=== PATIENT | male | born 1950 | race Caucasian/White ===

== ENCOUNTER 2022-10-23 12:09 | Day surgery (SDC) | payer MEDICARE, SELFPAY ==
[2022-10-23] MEDS: TETRACAINE 0.5% OPHTH 1 DROP EYE-LEFT (12:27)
[2022-10-23] MEDS: KETOROLAC OPHTH 0.5% 1 DROP EYE-LEFT ×3 (12:33→12:51)
[2022-10-23 12:38] VITALS: BP 121/76; PULSE 62; RESP 20; TEMP 36.4; O2SAT 100
[2022-10-23 12:40] VITALS: BMI 30.3
[2022-10-23] MEDS: HYALURONIDASE,OVINE 200 UNIT/ML VIAL 120 UNIT INJECTION (13:58)
[2022-10-23] MEDS: lidocaine HCL 2 % MULTIDOSE 20 ML VIAL 5 ML INJECTION (13:58)
[2022-10-23] MEDS: TETRACAINE 0.5% OPHTH 2 DROP EYE-LEFT (14:00)
--- NOTE | 2022-10-23 14:01 | W.ANESCHARGE ---
Anesthesia Charges Start Date/Time Anesthesia Start Date: 10/23/22 Anesthesia Start Time: 13:52 Stop Date/Time Anesthesia Stop Date: 10/23/22 Anesthesia Stop Time: 14:36 Summary Emergency: No Extremes of Age: Over 70-CPT 94063
[2022-10-23] MEDS: BALANCED SALT IRRIG SOLN 15 ML EYE-LEFT (14:04)
--- NOTE | 2022-10-23 14:08 | SUR.OPER ---
HEALON 5 PRO ADMINISTERED INTRAOP INTO OPSITE
--- NOTE | 2022-10-23 14:18 | W.ANESCHARGE ---
Anesthesia Charges Start Date/Time Anesthesia Start Date: 10/23/22 Anesthesia Start Time: 13:52 Stop Date/Time Anesthesia Stop Date: 10/23/22 Anesthesia Stop Time: 14:36 Summary Emergency: No Extremes of Age: Over 70-CPT 10885
[2022-10-23] MEDS: BRIMONIDINE TARTRATE 0.2% OPHTH 1 DROP EYE-LEFT (14:28)
[2022-10-23 14:36] VITALS: BP 133/79; PULSE 62; RESP 16; TEMP 36.7; O2SAT 95
--- NOTE | 2022-10-23 14:47 | PM.PROC ---
Procedure Note Date Seen: 10/23/22 Will [facility] bill your pro fee for this procedure?: No Procedure Description: Left eye dilated 1 sterile prep and drape % Mydriacyl 2.5% phenylephrine Ocufen Vigamox to OR time out identified patient procedure I OL powerl IV sedation retrobulbar and nadbath block paracentesis 6:00 a.m. viscoelastic entered keratome temporal capsulotomy hydrodissection phaco chop cortex removed capsule impanded IOL 21.0 viscoelastic removed miochol instilled viscoelastic instilled gonionprism applied head turn to right microscope adjusted trabecular meshwork identified eye stent inserted head repositioned microscope repositioned viscoelastic removed incision hydrated incision leak free Vigamox on shield applied I patched and shielded discharged Surgeon: Ramana Ramos MD
== END 2022-10-23 15:15 | disposition home or self-care (01) ==
PROVIDERS: PCP Family Medicine; Visit Provider Ophthalmology
PROC: (CPT 66984; principal; 2022-10-23 13:00)
DX: H25.812 Combined forms of age-related cataract, left eye (principal); H40.1124 Primary open-angle glaucoma, left eye, indeterminate stage
CPT/HCPCS: 66984; 00142; 82962; 99100; A9270; J2250; J2704; J3010; J3471; S0020; V2632

== ENCOUNTER 2024-06-30 15:46 | Outpatient (CLI) | payer MEDICARE, SELFPAY | END 2024-06-30 15:47 | disposition home or self-care (01) | LOC: AMB 07-03 09:50 | PROVIDERS: PCP Family Medicine; Visit Provider Family Medicine | DX: R51.9 Headache, unspecified (principal); R53.1 Weakness | CPT/HCPCS: A0425; A0427 ==

== ENCOUNTER 2024-06-30 16:30 | Inpatient (IN) | payer MEDICARE, SELFPAY ==
[2024-06-30] VITALS (23 sets, daily range): BP systolic 123–169; BP diastolic 62–94; PULSE 94–101; RESP 18–22; TEMP 36.7–38.4; O2SAT 93–99; BMI 26.6; BMI 26.4
--- NOTE | 2024-06-30 16:52 | ED_ITS ---
HPI - General Adult General Time Seen by Provider: 16:52 Date Seen: 06/30/24 Chief complaint: Weakness Stated complaint: Falls Time Seen by Provider: 06/30/24 16:35 Source: patient, EMS and RN notes reviewed Mode of arrival: EMS Limitations: no limitations History of Present Illness HPI narrative: This 74-year-old male is brought in by ambulance from home after he fell and was unable to get up. He told staff that he has been ?stumbling around all day today. He has reportedly maybe had multiple falls and then just could not get up on this last fall. He is noted to have progressive weakness. He denies hitting his head, has no headache or head pain. He does complain of some general neck pain and pain going into the top of both of his shoulders. Denies any new numbness tingling anywhere. Is able to move his arms and legs. His son is present, states he saw him on Friday and he seemed a bit agitated, not himself that day. They were not aware that he had a fever until arrival here, temperature is 100.5? F. He does have a history of urinary infections, had bladder cancer in a total cystectomy with creation of neobladder. He denies any coughing or respiratory symptoms. No abdominal pain, no nausea vomiting or diarrhea. He has no pain in his extremities. Denies any trauma from the fall. He is noted to have Parkinson's history of depression, chronic kidney disease stage 3, history of colon polyps, periodic limb movement disorder, GERD, type 2 diabetes. He is also had a rotator cuff surgery and history of an appendectomy. Patient is known to have of stricture, does do self catheterization in feels the need to urinate now, states he will need to catheterize. Related Data Home Medications ?Medication ?Instructions ?Recorded ?Confirmed Lactobacillus acidophilus 10 10 mg PO DAILY 10/22/22 10/23/22 billion cell capsule (Probiotic) atorvastatin 20 mg tablet (Lipitor) 20 mg PO DAILY 10/22/22 10/23/22 carbidopa 25 mg-levodopa 100 mg 1 tab PO TID 10/22/22 10/23/22 tablet (Sinemet) clopidogrel 75 mg tablet (Plavix) 75 mg PO DAILY 10/22/22 10/23/22 duloxetine 60 mg capsule,delayed 120 mg PO DAILY 10/22/22 10/23/22 release (Cymbalta) glipizide 10 mg tablet 10 mg PO BID 10/22/22 10/23/22 loratadine 10 mg tablet (Claritin) 10 mg PO DAILY 10/22/22 10/23/22 melatonin 3 mg capsule 9 mg PO QHS 10/22/22 10/23/22 metformin 500 mg tablet 1,000 mg PO BID 10/22/22 10/23/22 pantoprazole 20 mg tablet,delayed 20 mg PO DAILY 10/22/22 10/23/22 release pregabalin 200 mg capsule (Lyrica) 200 mg PO BID 10/22/22 10/23/22 sitagliptin phosphate 100 mg 100 mg PO DAILY 10/22/22 10/23/22 tablet (Januvia) tadalafil 20 mg tablet (Cialis) 20 mg PO DAILY PRN 10/22/22 10/22/22 trazodone 100 mg tablet 200 mg PO HS 10/22/22 10/23/22 Allergies Allergy/AdvReac Type Severity Reaction Status Date / Time Seasonal allergies Allergy Unknown Uncoded 06/30/24 20:51 Review of Systems Status of ROS: Reports: 6 or more systems reviewed and unremarkable except as noted in History and below Narrative: Question total reliability of patient's current history given he does seem to have some current confusion. [facility] Medical History (Updated 06/30/24 @ 21:22 by Lukasz Chaves MD) Prostate cancer ?C61 - Malignant neoplasm of prostate (ICD-10) Vertebral basilar insufficiency ?G45.0 - Vertebro-basilar artery syndrome (ICD-10) Neurogenic bladder ?N31.9 - Neuromuscular dysfunction of bladder, unspecified (ICD-10) Chronic constipation ?K59.09 - Other constipation (ICD-10) Malignant neoplasm of urinary bladder ?C67.9 - Malignant neoplasm of bladder, unspecified (ICD-10) Severe episode of recurrent major depressive disorder, without psychotic features ?F33.2 - Major depressive disorder, recurrent severe without psychotic features (ICD-10) Stage 3 chronic kidney disease ?N18.30 - Chronic kidney disease, stage 3 unspecified (ICD-10) Subungual hematoma of great toe of left foot ?S90.212A - Contusion of left great toe with damage to nail, initial encounter (ICD-10) Parkinson disease ?G20 - Parkinson's disease (ICD-10) Adenomatous colon polyp ?D12.6 - Benign neoplasm of colon, unspecified (ICD-10) Moderate episode of recurrent major depressive disorder ?F33.1 - Major depressive disorder, recurrent, moderate (ICD-10) Periodic limb movement disorder ?G47.61 - Periodic limb movement disorder (ICD-10) GERD without esophagitis ?K21.9 - Gastro-esophageal reflux disease without esophagitis (ICD-10) Type II diabetes mellitus ?E11.9 - Type 2 diabetes mellitus without complications (ICD-10) Surgical History (Updated 06/30/24 @ 21:22 by Lukasz Chaves MD) Hx of rotator cuff surgery ?Z98.890 - Other specified postprocedural states (ICD-10) Hx of total cystectomy ?Z90.6 - Acquired absence of other parts of urinary tract (ICD-10) Hx of appendectomy ?Z90.49 - Acquired absence of other specified parts of digestive tract (ICD- 10) Family History (Updated 06/30/24 @ 21:25 by Lukasz Chaves MD) Father Heart disease Daughter Breast cancer Social History Narrative: He lives with his . 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 Code status is full. He does not smoke. He rarely drinks alcohol. What is your current living situation?: I presently have a place to live Problems where you live: no known problems Problems where you live details: N/A In the past 12 months, utilities in danger of being shut off: no In past 12 months, lack of transportation kept you from medical appts, meetings, work, or getting things needed for daily living: no In the past 12 mos, have been you worried that your food would run out before you had money to buy more?: never true In the past 12 mos, the food you bought just didn't last and you didn't have money to buy more?: never true Highest level of school completed/degree received: Bachelor's degree Smoking Status: Never smoker Second hand tobacco smoke exposure: No How often do you have a drink containing alcohol: never How often do you have six or more drinks on one occasion: Never AUDIT-C Alcohol total score: 0 Non-prescribed substance use: denies use Caffeine: Yes (1 coffee daily) How often does anyone, including family, friends and others, physically hurt you : never How often does anyone, including family, friends and others, insult or talk down to you: never How often does anyone, including family, friends and others, threaten you with harm: never How often does anyone, including family, friends and others, scream or curse at you: never service: Yes Exam Const: Vital Signs, click to edit/add: Vital Signs - 24 hr 06/30/24 16:38 06/30/24 16:42 06/30/24 16:44 Temperature 100.5 F H Pulse Rate 94 Pulse Rate [Right Pulse Oximeter] 99 Respiratory Rate 20 Blood Pressure Blood Pressure [Le ft Upper Arm] 152/74 H Pulse Oximetry 96 94 Oxygen Delivery Me thod Room Air 06/30/24 16:45 06/30/24 17:00 06/30/24 17:15 Temperature Pulse Rate 99 98 97 Pulse Rate [Right Pulse Oximeter] Respiratory Rate Blood Pressure 133/74 Blood Pressure [Le ft Upper Arm] Pulse Oximetry 94 95 95 Oxygen Delivery Me thod 06/30/24 17:18 06/30/24 17:32 06/30/24 17:33 Temperature Pulse Rate 96 96 Pulse Rate [Right Pulse Oximeter] Respiratory Rate Blood Pressure 145/75 H Blood Pressure [Le ft Upper Arm] Pulse Oximetry [address]od 06/30/24 17:43 06/30/24 17:57 06/30/24 18:00 Temperature Pulse Rate 101 H 101 H Pulse Rate [Right Pulse Oximeter] Respiratory Rate Blood Pressure Blood Pressure [Le ft Upper Arm] Pulse Oximetry 99 93 96 Oxygen Delivery Me thod 06/30/24 18:01 06/30/24 18:02 06/30/24 18:03 Temperature 99.1 F 99.0 F Pulse Rate 101 H Pulse Rate [Right Pulse Oximeter] 98 Respiratory Rate 22 18 Blood Pressure 169/94 H Blood Pressure [Le ft Upper Arm] 169/94 H Pulse Oximetry 97 [facility] 06/30/24 18:15 06/30/24 18:32 06/30/24 19:00 Temperature 101.2 F H Pulse Rate 98 Pulse Rate [Right Pulse Oximeter] Respiratory Rate Blood Pressure 168/78 H Blood Pressure [Le ft Upper Arm] Pulse Oximetry 98 Oxygen Delivery Me thod 06/30/24 19:02 06/30/24 20:02 Temperature Pulse Rate Pulse Rate [Right Pulse Oximeter] Respiratory Rate Blood Pressure 153/69 H 123/62 Blood Pressure [Le ft Upper Arm] Pulse Oximetry Oxygen Delivery Me thod This 74-year-old male is alert and interactive, hard of hearing. He is disheveled. Face appears atraumatic. Pupils are equal round reactive, sclera clear, conjugate gaze, symmetrical facial function. Able speak in complete sentences. Lips are normal but tongue is very dry, oral mucosa is dry. EMS currently has 500 mL normal saline running. Neck is supple, no midline tenderness, no adenopathy, no paraspinous tenderness, no masses. He complains of no pain on range of motion. No midline tenderness over his spine. Lungs are clear, good air entry, no wheezing or crackles. CV regular rate and rhythm, no murmur, normal S1-S2, S3-S4. No pain over clavicles or shoulders, he is witnessed moving both arms, can move them above his head. Abdomen is soft, nontender, nondistended, no organomegaly, no rebound or guarding. He has no lower extremity edema, extremities are without any noted focal tenderness or definite areas of trauma. Documenting provider has reviewed patient's vital signs: yes Course Course ED Course: This patient obviously has a fever, primary concern would be urinary source for infection. Will get triple viral swab, full panel of labs as well as a portable chest x-ray. Given his falls and is complaining neck pain, do feel that we need to do head CT and noncontrast cervical spine imaging with CT. Need to rule out any occult traumatic injury. He certainly by history has some encephalopathy or mild delirium possibly. Will continue to monitor. Will look at lactate and procalcitonin and follow him clinically. There is significant severe shortage of our blood culture products with no definite plan for remedy of this. Thus, need to follow conservation protocol. Reevaluation(s) Time of Reevaluation #1: 19:05 Reevaluation #1: Have ordered chest abdomen pelvis CT to further define potential etiology of infection. Patient's temperatures up to 101.2? F, he recently got Tylenol in but is not likely effective yet. Urinalysis is not certainly definitive for infection. White blood count is mildly elevated. Chest x-ray is without any definite pneumonia. Procalcitonin is just minimally elevated at 0.9. C reactive protein is high at 21.5. Triple viral swab is negative. Will cover with IV Zosyn in the interim. Consultations Consultation #1: Have spoken with the hospitalist Dr. Chaves. Reviewed that we are awaiting radiology read of his chest abdomen and pelvis to see if we can identify a source. Otherwise, it very well may be urinary. We are waiting urine culture as well which obviously will take 48 hours. He has received is IV Zosyn. I will update them that the hospitalist has accepted. Time: 19:52 Vital Signs Vital signs: Initial Vital Signs Pulse Rate 99 06/30/24 16:38 Pulse Rhythm Regular 06/30/24 16:38 Pulse Strength 3+ Normal 06/30/24 16:38 Respiratory Rate 20 06/30/24 16:38 Blood Pressure 152/74 H 06/30/24 16:38 Blood Pressure Mean 100 06/30/24 16:38 Blood Pressure Position Semi-Fowlers 06/30/24 16:38 Pulse Oximetry 96 06/30/24 16:38 Oxygen Delivery Method Room Air 06/30/24 16:38 Vital Signs Pulse Rate 99 06/30/24 16:38 Respiratory Rate 20 06/30/24 16:38 Blood Pressure 152/74 H 06/30/24 16:38 Pulse Oximetry 96 06/30/24 16:38 Oxygen Delivery Method Room Air 06/30/24 16:38 Temperature 98.1 F 06/30/24 20:36 Pulse Rate 96 06/30/24 20:36 Respiratory Rate 18 06/30/24 20:36 Blood Pressure 129/76 06/30/24 20:36 Pulse Oximetry 93 06/30/24 20:36 Oxygen Delivery Method Room Air 06/30/24 20:36 Medications Administered Medications: Discontinued Medications Generic Name Dose Route Start Last Admin Trade Name Freq PRN Reason Stop Dose Admin Acetaminophen 1,000 mg 06/30/24 17:54 06/30/24 18:03 Acetaminophen 500 Mg Tablet PO 06/30/24 17:55 1,000 mg ONCE ONE Administration Piperacillin Sod/Tazobactam 100 mls @ 200 mls/hr 06/30/24 19:04 06/30/24 20:28 Sod 3.375 gm/ Sodium Chloride IVPB 06/30/24 19:05 Infused ONCE ONE Infusion Medical Decision Making Lab Data Lab results reviewed: Yes I reviewed the patient's lab results Labs: Lab Results 06/30/24 06/30/24 Range/Units 17:25 17:30 WBC 11.12 H (4.50-11.00) K/uL RBC 4.18 L (4.30-5.90) m/uL Hgb 12.3 L (13.5-17.5) gm/dL Hct 38.1 (37.0-53.0) % MCV 91 (80-100) fL MCH 29 (26-34) pg MCHC 32 (32-36) gm/dL RDW Coeff of Miriam 13.9 (11.5-15.5) % Plt Count 83 L (140-440) K/uL Neut % (Auto) 84.6 H (42.0-72.0) % Lymph % (Auto) 4.6 L (20-44) % [place] % (Auto) 10.3 (0.0-11.0) % Eos % (Auto) 0.0 (0.0-7.0) % Baso % (Auto) 0.1 (0.0-3.0) % Neut # (Auto) 9.40 H (1.7-7.0) K/uL Lymph # (Auto) 0.50 L (0.90-2.90) K/uL [place] # (Auto) 1.10 H (0.00-0.90) K/UL Eos # (Auto) 0.00 (0.00-0.50) K/uL Baso # (Auto) 0.00 (0.00-0.30) K/uL Abs Immat Gran (auto) 0.00 (0.00-0.30) K/uL Imm/Tot Granulo (auto) 0.4 % VBG pH 7.416 (7.32-7.43) VBG pCO2 35 L (40-50) mmHG VBG pO2 < 30.1 (25-47) mmHG VBG HCO3 23 (21-28) mmol/L Sodium 133 L (135-149) mmol/L Potassium 4.2 (3.6-5.1) mmol/L Chloride 104 (96-114) mmol/L Carbon Dioxide 21 (20-32) mmol/L Anion Gap 8 (7-15) mEq/L BUN 31 H (7-30) mg/dL Creatinine 1.5 (0.5-1.5) mg/dL Estimated Creat Clear 55.86 Estimated GFR 49 ml/min Glucose 317 H (60-115) mg/dL Lactate 1.3 (0.5-1.9) mmol/L Calcium 8.3 L (8.4-10.6) mg/dL Total Bilirubin 1.3 (0.1-1.5) mg/dL AST 28 (12-35) U/L ALT 23 (4-50) U/L Alkaline Phosphatase 92 (40-150) U/L C-Reactive Protein 21.5 H (0.5-1.0) mg/dL Total Protein 7.1 (6.0-8.3) g/dL Albumin 4.3 (3.3-5.0) g/dL Procalcitonin 0.90 H (<0.50) ng/mL Urine Color Yellow (Yellow) Urine Appearance Clear (Clear) Urine pH 5.5 (5.0-8.5) Ur Specific [place] 1.015 (1.000-1.030) Urine Protein 1+ A (Negative) Urine Glucose (UA) 2+ A (Negative) Urine Ketones Negative (Negative) Urine Blood 2+ A (Negative) Urine Nitrite Negative (Negative) Urine Bilirubin Negative (Negative) Urine Urobilinogen 0.2 (0.2-1.0) Ur Leukocyte Esterase Trace A (Negative) Urine RBC 2-5 A (0-2) Urine WBC 2-5 (0-5) Ur Squamous Epith Cells None (None-Few) Urine Bacteria Many A (None) SARS-CoV-2 (PCR) Negative SARS-CoV-2 (Negative) Influenza Type A (PCR) Negative PCR FLU A (Negative) Influenza Type B (PCR) Negative PCR FLU B (Negative) RSV (PCR) Negative PCR RSV (Negative) Imaging Data CT scan - head: Attestation: I have reviewed the pertinent imaging results. Radiologist's impression: Patient: ALPHONSE MCLAUGHLIN Facility:?[facility] Patient ID:?[id number] Site Patient ID:?[id number]. Site :?[id number] Study:?CT-Head WITHOUT-06/30/2024 5:59:05 PM Ordering Physician:?Sanjay Small Final Report: INDICATION: Altered mental status, fall TECHNIQUE: Noncontrast axial CT of the head. Coronal and sagittal reformats. Bone and soft tissue algorithms. COMPARISON: MRI brain 01/26/2019 FINDINGS: The calvarium is grossly intact. No acute intracranial hemorrhage or abnormal extra-axial fluid collection identified. No midline shift, mass effect, hydrocephalus or herniation. Preserved velázquez-white matter differentiation. Unremarkable white matter attenuation. Calcific intracranial atherosclerotic plaquing. Clear paranasal sinuses and mastoid air cells. Bilateral lens implants. IMPRESSION: 1. No skull fracture or acute intracranial hemorrhage identified. Please note that all CT scans at this facility use dose modulation, iterative reconstruction, and/or weight-based dosing when appropriate to reduce radiation dose to as low as reasonably achievable. Dictated by Nicolasa Garcia MD @ 06/30/2024 6:29:07 PM (Electronic Signature) CT cervical spine: Attestation: I have reviewed the pertinent imaging results. Radiologist's impression: Patient: ALPHONSE MCLAUGHLIN Facility:?[facility] Patient ID:?[id number] Site Patient ID:?[id number]. Site :?[id number] Study:?CT-Spine Cervical WITHOUT-06/30/2024 5:58:22 PM Ordering Physician:?Sanjay Small Final Report: Indication: Fall, neck pain Technique: Noncontrast axial CT of the cervical spine with coronal and sagittal reformats. Comparison: None Findings: Nonspecific straightening of the normal cervical lordosis. Grade 1 degenerative anterolisthesis at C4-5. Craniocervical junction appears within normal limits. No acute fracture identified. Degenerative Schmorl`s nodes at the C6 and C7 superior endplates. Incidental ossification of the ligamentum nuchae. Scattered degenerative changes, contributing to multilevel neural foraminal narrowing, but no significant spinal canal stenosis. Impression: 1. No evidence of acute fracture or traumatic malalignment in the cervical spine. 2. Scattered spondylosis as detailed. No high-grade spinal canal stenosis. Please note that all CT scans at this facility use dose modulation, iterative reconstruction, and/or weight-based dosing when appropriate to reduce radiation dose to as low as reasonably achievable. Dictated by Nicolasa Garcia MD @ 06/30/2024 6:32:39 PM (Electronic Signature) Chest x-ray: Attestation: I have reviewed the pertinent imaging results. Radiologist's impression: Patient: ALPHONSE MCLAUGHLIN Facility:?[facility] Patient ID:?[id number] Site Patient ID:?[id number]. Site :?1950 Study:?XRay-Chest PORTABLE-06/30/2024 5:49:23 PM Ordering Physician:?Sanjay Small Final Report: Indication: Fever, weakness Technique: AP view of the chest. Comparison: 07/03/2015 Findings: Low lung volumes. Normal cardiomediastinal silhouette. No focal consolidation, pleural effusions, or visualized pneumothorax. Impression: No acute cardiopulmonary disease. Dictated by Landen Burns MD @ 06/30/2024 6:59:59 PM (Electronic Signature) CT Chest/Ab/Pelvis: Radiologist's impression: Pending at time of admission. ECG Data Attestation: I personally reviewed and interpreted this ECG as follows: (Normal sinus rhythm, 100 beats per minute, left anterior fascicular block.) Prior ECG tracings: not available for review Discharge Plan Discharge Clinical Impression: Weakness, Falls Fever Qualifiers: Fever type: unspecified Qualified Code(s): R50.9 - Fever, unspecified Patient Disposition: Admitted As Observation
--- NOTE | 2024-06-30 17:00 | CRLHL7_ITS ---
For Patients: As a result of the Century Cures Act, medical imaging exams and procedure reports are released immediately into your electronic medical record. You may view this report before your referring provider. If you have questions, please contact your health care provider. Indication: Fever, weakness Technique: AP view of the chest. Comparison: 07/03/2015 Findings: Low lung volumes. Normal cardiomediastinal silhouette. No focal consolidation, pleural effusions, or visualized pneumothorax. Impression: No acute cardiopulmonary disease. Dictated by Landen Burns MD @ 06/30/2024 6:59:59 PM (Electronically Signed)
--- NOTE | 2024-06-30 17:20 | CRLHL7_ITS ---
For Patients: As a result of the Century Cures Act, medical imaging exams and procedure reports are released immediately into your electronic medical record. You may view this report before your referring provider. If you have questions, please contact your health care provider. INDICATION: Altered mental status, fall TECHNIQUE: Noncontrast axial CT of the head. Coronal and sagittal reformats. Bone and soft tissue algorithms. COMPARISON: MRI brain 01/26/2019 FINDINGS: The calvarium is grossly intact. No acute intracranial hemorrhage or abnormal extra-axial fluid collection identified. No midline shift, mass effect, hydrocephalus or herniation. Preserved velázquez-white matter differentiation. Unremarkable white matter attenuation. Calcific intracranial atherosclerotic plaquing. Clear paranasal sinuses and mastoid air cells. Bilateral lens implants. IMPRESSION: 1. No skull fracture or acute intracranial hemorrhage identified. Please note that all CT scans at this facility use dose modulation, iterative reconstruction, and/or weight-based dosing when appropriate to reduce radiation dose to as low as reasonably achievable. Dictated by Nicolasa Garcia MD @ 06/30/2024 6:29:07 PM (Electronically Signed)
--- NOTE | 2024-06-30 17:20 | CRLHL7_ITS ---
For Patients: As a result of the Century Cures Act, medical imaging exams and procedure reports are released immediately into your electronic medical record. You may view this report before your referring provider. If you have questions, please contact your health care provider. Indication: Fall, neck pain Technique: Noncontrast axial CT of the cervical spine with coronal and sagittal reformats. Comparison: None Findings: Nonspecific straightening of the normal cervical lordosis. Grade 1 degenerative anterolisthesis at C4-5. Craniocervical junction appears within normal limits. No acute fracture identified. Degenerative Schmorl`s nodes at the C6 and C7 superior endplates. Incidental ossification of the ligamentum nuchae. Scattered degenerative changes, contributing to multilevel neural foraminal narrowing, but no significant spinal canal stenosis. Impression: 1. No evidence of acute fracture or traumatic malalignment in the cervical spine. 2. Scattered spondylosis as detailed. No high-grade spinal canal stenosis. Please note that all CT scans at this facility use dose modulation, iterative reconstruction, and/or weight-based dosing when appropriate to reduce radiation dose to as low as reasonably achievable. Dictated by Nicolasa Garcia MD @ 06/30/2024 6:32:39 PM (Electronically Signed)
[2024-06-30 17:37] LABS: HCO3 VBG 23 mmol/L (21-28); PCO2 VBG 35 mmHG (40-50); PO2 VBG < 30.1 mmHG (25-47); pH VBG 7.416 (7.32-7.43)
[2024-06-30 17:39] LABS: Basophils Percent Auto 0.1 % (0.0-3.0); Hematocrit 38.1 % (37.0-53.0); Hemoglobin* 12.3 gm/dL (13.5-17.5); Immature Granulocytes Pct Auto 0.4 %; Lymphocytes Percent Auto 4.6 % (20-44); Mean Corpuscular HGB Conc 32 gm/dL (32-36); Mean Corpuscular Hemoglobin 29 pg (26-34); Mean Corpuscular Volume 91 fL (80-100); Monocytes Percent Auto 10.3 % (0.0-11.0); Neutrophils Percent Auto 84.6 % (42.0-72.0); Platelet Count* 83 K/uL (140-440); RDW Coefficient of Variation % 13.9 % (11.5-15.5); Red Blood Count 4.18 m/uL (4.30-5.90); White Blood Count* 11.12 K/uL (4.50-11.00)
[2024-06-30 17:41] LABS: Appearance Urine Clear (Clear); Bilirubin Urine Negative (Negative); Blood Urine 2+ (Negative); Color Urine Yellow (Yellow); Glucose Urine 2+ (Negative); Ketones Urine Negative (Negative); Leukocyte Esterase Urine Trace (Negative); Nitrite Urine Negative (Negative); Protein Urine 1+ (Negative); Specific Gravity Urine 1.015 (1.000-1.030); Urobilinogen Urine 0.2 (0.2-1.0); pH Urine 5.5 (5.0-8.5)
[2024-06-30 17:42] LABS: Slide Review Reflex No
[2024-06-30 17:43] LABS: Lactate* 1.3 mmol/L (0.5-1.9)
[2024-06-30 17:51] LABS: Albumin* 4.3 g/dL (3.3-5.0); Chloride* 104 mmol/L (96-114); Sodium* 133 mmol/L (135-149)
[2024-06-30 17:52] LABS: Potassium* 4.2 mmol/L (3.6-5.1)
[2024-06-30 17:53] LABS: Creatinine* 1.5 mg/dL (0.5-1.5); Est. Creatinine Clearance* 55.86; Estimated Glomerular Filt Rate 49 ml/min
[2024-06-30 17:54] LABS: Alanine Aminotransferase* 23 U/L (4-50); Alkaline Phosphatase* 92 U/L (40-150); Anion Gap 8 mEq/L (7-15); Aspartate Amino Transferase* 28 U/L (12-35); Bilirubin Total* 1.3 mg/dL (0.1-1.5); Blood Urea Nitrogen* 31 mg/dL (7-30); Carbon Dioxide* 21 mmol/L (20-32); Glucose* 317 mg/dL (60-115); Total Protein* 7.1 g/dL (6.0-8.3)
[2024-06-30 17:55] LABS: Calcium* 8.3 mg/dL (8.4-10.6)
[2024-06-30] MEDS: ACETAMINOPHEN 500 MG TABLET 1000 MG PO (18:03)
[2024-06-30 18:06] LABS: Bacteria Urine Many
[2024-06-30 18:09] LABS: C Reactive Protein* 21.5 mg/dL (0.5-1.0)
[2024-06-30 18:17] LABS: PCR FLU A Negative PCR FLU A (Negative); PCR FLU B Negative PCR FLU B (Negative); PCR RSV Negative PCR RSV (Negative); SARS PCR* Negative SARS-CoV-2 (Negative)
--- NOTE | 2024-06-30 19:04 | CRLHL7_ITS ---
For Patients: As a result of the Century Cures Act, medical imaging exams and procedure reports are released immediately into your electronic medical record. You may view this report before your referring provider. If you have questions, please contact your health care provider. Indication: Fever Technique: Postcontrast CT of the chest, abdomen, and pelvis with multiplanar reformats following 112 mL Isovue 370 IV. Comparison: CT chest abdomen pelvis dated 07/04/2015 Findings: Chest: Lungs: No consolidation. Trace right effusion. No pneumothorax. Mediastinum: No acute abnormality appreciated. Calcified atherosclerosis of the coronary arteries. Lymph nodes: No gross lymphadenopathy. Soft tissues: No acute abnormality appreciated. Bones: Degenerative changes of the spine. Abdomen and Pelvis: Hepatobiliary: There is a 2.8 centimeter indeterminate density lesion in the right inferior medial liver. Cholelithiasis. Spleen: Unremarkable. Pancreas: No acute abnormality appreciated. Adrenal glands: No acute abnormality appreciated. Kidneys: Bilateral perinephric stranding and mild hydronephrosis appears unchanged compared to prior examinations. Bowel: Postoperative changes. Obstruction. No focal perienteric or pericolonic stranding is appreciated. The appendix is visualized and appears unremarkable. Vascular: Calcified atherosclerosis. Lymph nodes: Aortocaval node measures 11 millimeters, previously measuring 16 millimeters. Peritoneum: No free air. No free fluid. : Status post cystectomy with neobladder construction. Soft tissues: No acute abnormality appreciated. Bones: No acute fracture. No lytic or blastic lesion. Impression: 1. Indeterminate density lesion in the right liver measures 2.8 centimeters, did not appear to be present on 2015 examination. Etiology and significance uncertain, consider nonemergent outpatient liver protocol MRI or CT. 2. Additional chronic findings as above with no acute abnormality appreciated to account for patient`s reported symptoms. Please note that all CT scans at this facility use dose modulation, iterative reconstruction, and/or weight-based dosing when appropriate to reduce radiation dose to as low as reasonably achievable. Dictated by Paulino Villafana MD @ 06/30/2024 8:31:29 PM (Electronically Signed)
[2024-06-30] MEDS: PIPERACILLIN/TAZOBACTAM 3.375 GM in 0.9 % SODIUM CHLORIDE Mini-bag 100 ML IVPB (19:38)
--- NOTE | 2024-06-30 21:18 | P.IMHP_ITS ---
Hospitalist- H&P: HPI History of Present Illness Date Seen: 06/30/24 Chief complaint: Falls Narrative: Cory Vregara is a 74 year old male with prostate cancer, bladder cancer, Parkinson's and diabetes admitted through the emergency department with acute on chronic weakness and falls. Patient reports for the last couple days he has had recurrent falls. Today he was so weak that he was unable to stand. He normally walks without assistive device/walker/cane. Today he fell and could not get up. Not aware of being ill. On presentation the emergency room he was found to have a fever. Reports no other concerns. Specifically denies cough, sore throat, cold, shortness of breath, chest pain, abdominal pain, nausea vomiting or diarrhea. He has history of bladder cancer with a neobladder and has had recurrent urinary infections in the past. He self catheterizes. He has had no recent travel. He has not had any sick exposures. Review of Systems Narrative: Patient has had progressive weakness associated with Parkinson's but acutely worse in the last few days. Review of systems otherwise unremarkable. [facility] Medical History (Updated 06/30/24 @ 21:32 by Lukasz Chaves MD) Liver lesion ?K76.9 - Liver disease, unspecified (ICD-10) Prostate cancer ?C61 - Malignant neoplasm of prostate (ICD-10) Vertebral basilar insufficiency ?G45.0 - Vertebro-basilar artery syndrome (ICD-10) Neurogenic bladder ?N31.9 - Neuromuscular dysfunction of bladder, unspecified (ICD-10) Chronic constipation ?K59.09 - Other constipation (ICD-10) Malignant neoplasm of urinary bladder ?C67.9 - Malignant neoplasm of bladder, unspecified (ICD-10) Severe episode of recurrent major depressive disorder, without psychotic features ?F33.2 - Major depressive disorder, recurrent severe without psychotic features (ICD-10) Stage 3 chronic kidney disease ?N18.30 - Chronic kidney disease, stage 3 unspecified (ICD-10) Subungual hematoma of great toe of left foot ?S90.212A - Contusion of left great toe with damage to nail, initial encounter (ICD-10) Parkinson disease ?G20 - Parkinson's disease (ICD-10) Adenomatous colon polyp ?D12.6 - Benign neoplasm of colon, unspecified (ICD-10) Moderate episode of recurrent major depressive disorder ?F33.1 - Major depressive disorder, recurrent, moderate (ICD-10) Periodic limb movement disorder ?G47.61 - Periodic limb movement disorder (ICD-10) GERD without esophagitis ?K21.9 - Gastro-esophageal reflux disease without esophagitis (ICD-10) Type II diabetes mellitus ?E11.9 - Type 2 diabetes mellitus without complications (ICD-10) Surgical History (Updated 06/30/24 @ 21:22 by Lukasz Chaves MD) Hx of rotator cuff surgery ?Z98.890 - Other specified postprocedural states (ICD-10) Hx of total cystectomy ?Z90.6 - Acquired absence of other parts of urinary tract (ICD-10) Hx of appendectomy ?Z90.49 - Acquired absence of other specified parts of digestive tract (ICD- 10) Family History (Updated 06/30/24 @ 21:25 by Lukasz Chaves MD) Father Heart disease Daughter Breast cancer Social History (Updated 06/30/24 @ 21:25 by Lukasz Chaves MD) Narrative: He lives with his . 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 Code status is full. He does not smoke. He rarely drinks alcohol. What is your current living situation?: I presently have a place to live Problems where you live: no known problems Problems where you live details: N/A In the past 12 months, utilities in danger of being shut off: no In past 12 months, lack of transportation kept you from medical appts, meetings, work, or getting things needed for daily living: no In the past 12 mos, have been you worried that your food would run out before you had money to buy more?: never true In the past 12 mos, the food you bought just didn't last and you didn't have money to buy more?: never true Highest level of school completed/degree received: Bachelor's degree Smoking Status: Never smoker Second hand tobacco smoke exposure: No How often do you have a drink containing alcohol: never How often do you have six or more drinks on one occasion: Never AUDIT-C Alcohol total score: 0 Non-prescribed substance use: denies use Caffeine: Yes (1 coffee daily) How often does anyone, including family, friends and others, physically hurt you : never How often does anyone, including family, friends and others, insult or talk down to you: never How often does anyone, including family, friends and others, threaten you with harm: never How often does anyone, including family, friends and others, scream or curse at you: never service: Yes Meds Home Medications and Allergies Home Medications ?Medication ?Instructions ?Recorded ?Confirmed ?Type Lactobacillus acidophilus 10 10 mg PO DAILY 10/22/22 10/23/22 History billion cell capsule (Probiotic) atorvastatin 20 mg tablet (Lipitor) 20 mg PO DAILY 10/22/22 10/23/22 History carbidopa 25 mg-levodopa 100 mg 1 tab PO TID 10/22/22 10/23/22 History tablet (Sinemet) clopidogrel 75 mg tablet (Plavix) 75 mg PO DAILY 10/22/22 10/23/22 History duloxetine 60 mg capsule,delayed 120 mg PO DAILY 10/22/22 10/23/22 History release (Cymbalta) glipizide 10 mg tablet 10 mg PO BID 10/22/22 10/23/22 History loratadine 10 mg tablet (Claritin) 10 mg PO DAILY 10/22/22 10/23/22 History melatonin 3 mg capsule 9 mg PO QHS 10/22/22 10/23/22 History metformin 500 mg tablet 1,000 mg PO BID 10/22/22 10/23/22 History pantoprazole 20 mg tablet,delayed 20 mg PO DAILY 10/22/22 10/23/22 History release pregabalin 200 mg capsule (Lyrica) 200 mg PO BID 10/22/22 10/23/22 History sitagliptin phosphate 100 mg 100 mg PO DAILY 10/22/22 10/23/22 History tablet (Januvia) tadalafil 20 mg tablet (Cialis) 20 mg PO DAILY PRN 10/22/22 10/22/22 History trazodone 100 mg tablet 200 mg PO HS 10/22/22 10/23/22 History Allergies Allergy/AdvReac Type Severity Reaction Status Date / Time Seasonal allergies Allergy Unknown Uncoded 06/30/24 20:51 Exam Narrative: Exam Narrative: He is alert but tired appearing and appears in no distress. He gives his own history. Head is normal. No trauma. Eyes normal. Extraocular movements full. No facial asymmetry. Oropharynx with dry mucous membranes. Neck is supple without mass or adenopathy. Respirations are clear to auscultation. Cardiovascular: S1, S2, regular rate and rhythm. No murmur gallop or rub. Abdomen: Bowel sounds active. Abdomen is soft without tenderness or mass. External genitalia normal. Extremities normal. Intact pulses and sensation. No rash. Const: Vital Signs, click to edit/add: Vital Signs - 24 hr 06/30/24 16:38 06/30/24 16:42 06/30/24 16:44 Temperature 100.5 F H Pulse Rate 94 Pulse Rate [Left P ulse Oximeter] Pulse Rate [Right Pulse Oximeter] 99 Respiratory Rate 20 Blood Pressure Blood Pressure [Le ft Arm] Blood Pressure [Le ft Upper Arm] 152/74 H Pulse Oximetry 96 94 Oxygen Delivery Me od Room Air 06/30/24 16:45 06/30/24 17:00 06/30/24 17:15 Temperature Pulse Rate 99 98 97 Pulse Rate [Left P ulse Oximeter] Pulse Rate [Right Pulse Oximeter] Respiratory Rate Blood Pressure 133/74 Blood Pressure [Le ft Arm] Blood Pressure [Le ft Upper Arm] Pulse Oximetry 94 95 95 Oxygen Delivery Me thod 06/30/24 17:18 06/30/24 17:32 06/30/24 17:33 Temperature Pulse Rate 96 96 Pulse Rate [Left P ulse Oximeter] Pulse Rate [Right Pulse Oximeter] Respiratory Rate Blood Pressure 145/75 H Blood Pressure [Le ft Arm] Blood Pressure [Le ft Upper Arm] Pulse Oximetry 99 98 Oxygen Delivery Me thod 06/30/24 17:43 06/30/24 17:57 06/30/24 18:00 Temperature Pulse Rate 101 H 101 H Pulse Rate [Left P ulse Oximeter] Pulse Rate [Right Pulse Oximeter] Respiratory Rate Blood Pressure Blood Pressure [Le ft Arm] Blood Pressure [Le ft Upper Arm] Pulse Oximetry 99 93 96 Oxygen Delivery Me thod 06/30/24 18:01 06/30/24 18:02 06/30/24 18:03 Temperature 99.1 F 99.0 F Pulse Rate 101 H Pulse Rate [Left P ulse Oximeter] Pulse Rate [Right Pulse Oximeter] 98 Respiratory Rate 22 18 Blood Pressure 169/94 H Blood Pressure [Le ft Arm] Blood Pressure [Le ft Upper Arm] 169/94 H Pulse Oximetry 97 99 Oxygen Delivery Me thod Room Air 06/30/24 18:15 06/30/24 18:32 06/30/24 19:00 Temperature 101.2 F H Pulse Rate 98 Pulse Rate [Left P ulse Oximeter] Pulse Rate [Right Pulse Oximeter] Respiratory Rate Blood Pressure 168/78 H Blood Pressure [Le ft Arm] Blood Pressure [Le ft Upper Arm] Pulse Oximetry 98 Oxygen Delivery Me thod 06/30/24 19:02 06/30/24 20:02 06/30/24 20:36 Temperature 98.1 F Pulse Rate Pulse Rate [Left P ulse Oximeter] 96 Pulse Rate [Right Pulse Oximeter] Respiratory Rate 18 Blood Pressure 153/69 H 123/62 Blood Pressure [Le ft Arm] 129/76 Blood Pressure [Le ft Upper Arm] Pulse Oximetry 93 Oxygen Delivery Me thod Room Air Documenting provider has reviewed patient's vital signs: yes Hospitalist - H&P: Result Labs Labs: Short CBC 06/30/24 Range/Units 17:30 WBC 11.12 H (4.50-11.00) K/uL Hgb 12.3 L (13.5-17.5) gm/dL Hct 38.1 (37.0-53.0) % Plt Count 83 L (140-440) K/uL BMP 06/30/24 17:30 Sodium 133 L Potassium 4.2 Chloride 104 Carbon Dioxide 21 BUN 31 H Creatinine 1.5 Glucose 317 H Calcium 8.3 L Liver Function 06/30/24 Range/Units 17:30 Total Bilirubin 1.3 (0.1-1.5) mg/dL AST 28 (12-35) U/L ALT 23 (4-50) U/L Alkaline Phosphatase 92 (40-150) U/L Albumin 4.3 (3.3-5.0) g/dL Urine 06/30/24 Range/Units 17:25 Urine Color Yellow (Yellow) Urine Appearance Clear (Clear) Urine pH 5.5 (5.0-8.5) Ur Specific [place] 1.015 (1.000-1.030) Urine Protein 1+ A (Negative) Urine Glucose (UA) 2+ A (Negative) Imaging CT Chest/Ab/Pelvis: Radiologist's impression: Indication: Fever Technique: Postcontrast CT of the chest, abdomen, and pelvis with multiplanar reformats following 112 mL Isovue 370 IV. Comparison: CT chest abdomen pelvis dated 07/04/2015 Findings: Chest: Lungs: No consolidation. Trace right effusion. No pneumothorax. Mediastinum: No acute abnormality appreciated. Calcified atherosclerosis of the coronary arteries. Lymph nodes: No gross lymphadenopathy. Soft tissues: No acute abnormality appreciated. Bones: Degenerative changes of the spine. Abdomen and Pelvis: Hepatobiliary: There is a 2.8 centimeter indeterminate density lesion in the right inferior medial liver. Cholelithiasis. Spleen: Unremarkable. Pancreas: No acute abnormality appreciated. Adrenal glands: No acute abnormality appreciated. Kidneys: Bilateral perinephric stranding and mild hydronephrosis appears unchanged compared to prior examinations. Bowel: Postoperative changes. Obstruction. No focal perienteric or pericolonic stranding is appreciated. The appendix is visualized and appears unremarkable. Vascular: Calcified atherosclerosis. Lymph nodes: Aortocaval node measures 11 millimeters, previously measuring 16 millimeters. Peritoneum: No free air. No free fluid. : Status post cystectomy with neobladder construction. Soft tissues: No acute abnormality appreciated. Bones: No acute fracture. No lytic or blastic lesion. Impression: 1. Indeterminate density lesion in the right liver measures 2.8 centimeters, did not appear to be present on 2015 examination. Etiology and significance uncertain, consider nonemergent outpatient liver protocol MRI or CT. 2. Additional chronic findings as above with no acute abnormality appreciated to account for patient`s reported symptoms. CT scan - head: Radiologist's impression: INDICATION: Altered mental status, fall TECHNIQUE: Noncontrast axial CT of the head. Coronal and sagittal reformats. Bone and soft tissue algorithms. COMPARISON: MRI brain 01/26/2019 FINDINGS: The calvarium is grossly intact. No acute intracranial hemorrhage or abnormal extra-axial fluid collection identified. No midline shift, mass effect, hydrocephalus or herniation. Preserved velázquez-white matter differentiation. Unremarkable white matter attenuation. Calcific intracranial atherosclerotic plaquing. Clear paranasal sinuses and mastoid air cells. Bilateral lens implants. IMPRESSION: 1. No skull fracture or acute intracranial hemorrhage identified. CT- Other: Radiologist's impression: CT cervical spine: Indication: Fall, neck pain Technique: Noncontrast axial CT of the cervical spine with coronal and sagittal reformats. Comparison: None Findings: Nonspecific straightening of the normal cervical lordosis. Grade 1 degenerative anterolisthesis at C4-5. Craniocervical junction appears within normal limits. No acute fracture identified. Degenerative Schmorl`s nodes at the C6 and C7 superior endplates. Incidental ossification of the ligamentum nuchae. Scattered degenerative changes, contributing to multilevel neural foraminal narrowing, but no significant spinal canal stenosis. Impression: 1. No evidence of acute fracture or traumatic malalignment in the cervical spine. 2. Scattered spondylosis as detailed. No high-grade spinal canal stenosis. Assessment and Plan Assessment and plan (1) Fever: Problem comment: Patient presents with fever and profound weakness. No definite source for the fever except possible urinary tract infection. Will initiate treatment with piperacillin tazobactam pending cultures and clinical course. Status: Acute (2) Weakness: Problem comment: Acute on chronic. Chronic weakness primarily related to Parkinson's. Acute weakness related to current infection. Unable to walk independently. PT and OT to evaluate Status: Acute (3) Falls: Problem comment: Recurrent recent falls related to acute on chronic weakness with Parkinson's Status: Acute (4) Parkinson disease: Problem comment: Progressive disability Status: Acute (5) Neurogenic bladder: Problem comment: Self catheterizes p.r.n., incontinent at night when he uses a condom cath Status: Acute (6) Type II diabetes mellitus: Problem comment: Continue home diabetes medicines if tolerating oral diet. Monitor blood sugars. Sliding scale insulin. Status: Acute (7) Liver lesion: Problem comment: 2.8 cm indeterminate density lesion in the liver which is new since 2014. Incidentally found on CT from 06/30/2024. Follow-up with outpatient liver protocol MRI or CT. Status: Acute (8) Hx of total cystectomy: Problem comment: Cystectomy, prostatectomy, neobladder 2009 Status: Acute Plan 74-year-old male admitted to the hospital with fever, possible UTI, profound weakness and inability to walk. Admit to the hospital for ongoing evaluation management. IV antibiotics pending cultures. Total Time Spent Total Time Spent: Total time spent today is 85 minutes coordination of care
[2024-06-30] MEDS: glipiZIDE 5 MG TABLET 10 MG PO (21:46)
[2024-06-30] MEDS: CARBIDOPA-LEVODOPA 25-100 TABLET 2 TAB PO (21:46)
[2024-06-30] MEDS: MELATONIN 3 MG TABLET 9 MG PO (21:47)
[2024-06-30] MEDS: PREGABALIN 100 MG CAPSULE 200 MG PO (21:48)
[2024-06-30] MEDS: TRAZODONE HCL 50 MG TABLET 200 MG PO (21:48)
[2024-06-30] MEDS: SODIUM CHLORIDE 0.9 % (FLUSH) 10 ML SYRINGE 5 ML IVF (21:48)
--- NOTE | 2024-06-30 22:05 | PC.NURSE ---
Pharmacy phone call with concern of platelets and Lovenox. Notified Dr. Chaves, platelets are chronically low, will monitor platelets daily. Pharmacy updates.
[2024-06-30] MEDS: ENOXAPARIN 40 MG/0.4 ML INJ SUBCUT (22:17)
[2024-07-01] VITALS (12 sets, daily range): BP systolic 99–139; BP diastolic 54–79; PULSE 81–103; RESP 14–20; TEMP 36.5–39.5; O2SAT 93–95
[2024-07-01] MEDS: ACETAMINOPHEN 325 MG TABLET 650 MG PO ×2 (00:32→06:23)
[2024-07-01] MEDS: PIPERACILLIN/TAZOBACTAM 3.375 GM in 0.9 % SODIUM CHLORIDE Mini-bag 100 ML IVPB ×4 (01:39→19:39)
[2024-07-01] MEDS: 0.9 % SODIUM CHLORIDE 1000 ml 1,000 ML IV (03:30)
[2024-07-01] MEDS: 0.9 % SODIUM CHLORIDE 1000 ml 1,000 ML 50 ML IV ×2 (04:33→23:48)
--- NOTE | 2024-07-01 06:53 | PC.NURSE ---
Addendum entered by Coni Hill RN 07/01/24 07:32: Pt able to transfer/ambulate with assist of 1 using FWW and gait belt. Original Note: End of shift note : Pt noted to be alert & oriented x 4 upon assessment. Pt noted to be febrile with fever of 103.1 overnight. PRN Tylenol given with temp of 99.5 upon followup. Pt currently on IV Zosyn to treat infection with urine culture obtained in ED currently pending. Blood pressure noted to be trending soft at 99/59 with 0300 VS. [facility] called Andres OWEN and provided update of fever and B/P trending lower. New orders obtained to give 1L IV bolus of NS and then administer NS IV at 50 mL/hr. External catheter device worn at night as pt reports he has nocturnal incontinence, otherwise performs self-catheterization during waking hours. External catheter only minimally effective, staff provided incontinent brief/liner as well. Pt reported 4/10 headache upon admission from ED though was given Tylenol prior to transferring to med/surg. Pt tolerating regular diet with no N/V noted. [facility] removed IV from R AC this morning as this was noted to be EMS start and placed new 22G IV to L forearm. Fever of 100.7 noted at 0615 with another dose of PRN Tylenol administered. Bed alarm on due to hx of multiple falls.
[2024-07-01 06:55] LABS: Basophils Absolute Auto 0.03 K/uL (0.00-0.30); Basophils Percent Auto 0.3 % (0.0-3.0); Hematocrit 37.8 % (37.0-53.0); Hemoglobin* 12.2 gm/dL (13.5-17.5); Immature Granulocytes Abs Auto 0.09 K/uL (0.00-0.30); Immature Granulocytes Pct Auto 0.8 %; Lymphocytes Percent Auto 10.2 % (20-44); Mean Corpuscular HGB Conc 32 gm/dL (32-36); Mean Corpuscular Hemoglobin 30 pg (26-34); Mean Corpuscular Volume 92 fL (80-100); Neutrophils Percent Auto 75.7 % (42.0-72.0); Platelet Count* 77 K/uL (140-440); RDW Coefficient of Variation % 14.2 % (11.5-15.5); Red Blood Count 4.12 m/uL (4.30-5.90); White Blood Count* 10.62 K/uL (4.50-11.00)
[2024-07-01 07:09] LABS: Chloride* 102 mmol/L (96-114); Sodium* 134 mmol/L (135-149)
[2024-07-01 07:10] LABS: Potassium* 4.1 mmol/L (3.6-5.1)
[2024-07-01 07:12] LABS: Creatinine* 1.9 mg/dL (0.5-1.5); Estimated Glomerular Filt Rate 37 ml/min
[2024-07-01 07:13] LABS: Anion Gap 8 mEq/L (7-15); Blood Urea Nitrogen* 30 mg/dL (7-30); Calcium* 8.6 mg/dL (8.4-10.6); Carbon Dioxide* 24 mmol/L (20-32)
[2024-07-01 07:19] LABS: Slide Review Reflex No
[2024-07-01] MEDS: OMEPRAZOLE 20 MG CAPSULE DR PO (07:46)
[2024-07-01 07:49] LABS: Glucose* 362 mg/dL (60-115)
[2024-07-01 07:50] LABS: C Reactive Protein* 30.9 mg/dL (0.5-1.0)
[2024-07-01] MEDS: INSULIN ASPART 100 UNIT/ML SUBCUT ×4 (08:09→21:24)
[2024-07-01] MEDS: LORATADINE 10 MG TABLET PO (09:08)
[2024-07-01] MEDS: CARBIDOPA-LEVODOPA 25-100 TABLET 2 TAB PO ×3 (09:08→21:16)
[2024-07-01] MEDS: DULOXETINE 30 MG CAPSULE DR 120 MG PO (09:09)
[2024-07-01] MEDS: PREGABALIN 100 MG CAPSULE 200 MG PO ×2 (09:09→21:22)
[2024-07-01] MEDS: glipiZIDE 5 MG TABLET 10 MG PO ×2 (09:09→17:40)
[2024-07-01] MEDS: LACTOBACILLUS ACIDOPHILUS 1 TABLET 1 TAB PO (09:09)
[2024-07-01] MEDS: CLOPIDOGREL 75 MG TABLET PO (09:09)
--- NOTE | 2024-07-01 10:12 | PM.IMPN1 ---
Progress Note: A&P Assessment and plan (1) Fever: Problem details: Patient presents with fever and profound weakness. No definite source for the fever except possible urinary tract infection. CT chest without consolidation/infiltrates Continue Zosyn Gentle IVF until improved oral intake Tylenol p.r.n. fever UC pending, no BC drawn, procalcitonin 0.90 Status: Acute (2) UTI (urinary tract infection): Problem details: Suspected. At risk, chronic self catheterization Continue Zosyn UC pending, leukocytosis resolved, CRP remains elevated Status: Acute (3) Weakness: Problem details: Acute on chronic. Chronic weakness primarily related to Parkinson's. Acute weakness related to current infection. Unable to walk independently. PT and OT to evaluate Status: Acute (4) Falls: Problem details: Recurrent recent falls related to acute on chronic weakness with Parkinson's Status: Acute (5) Parkinson disease: Problem details: Progressive disability Status: Acute (6) Neurogenic bladder: Problem details: Self catheterizes p.r.n., incontinent at night when he uses a condom cath Status: Acute (7) Type II diabetes mellitus: Problem details: Most recent A1c 7.1 Continue home diabetes medicines, holding metformin Monitor blood sugars. Sliding scale insulin. Status: Acute (8) Liver lesion: Problem details: 2.8 cm indeterminate density lesion in the liver which is new since 2014. Incidentally found on CT from 06/30/2024. Follow-up with outpatient liver protocol MRI or CT. Status: Acute (9) Hx of total cystectomy: Problem details: Cystectomy, prostatectomy, neobladder 2009 Status: Acute (10) Stage 3 chronic kidney disease: Problem details: With SHANNAN today Creatinine 1.9, up from 1.5 on admission, baseline 1.4-1.5 Hold metformin, avoid nephrotoxic medications, continue to monitor while on Zosyn adjusting dose as necessary Status: Acute Plan Continue IV antibiotics, awaiting urine culture results, transitioning to oral prior to discharge Time Spent With Patient Total time spent: Total time spent caring for the patient today was 60 minutes. This includes time spent for the visit reviewing the chart, time spent during the visit, time spent after the visit and documentation and planning in coordination of care. Subjective Date Seen: 07/01/24 Interval history: Is seen lying in bed this morning. Not yet feeling much better. Continues to feel exhausted. Headache from yesterday has improved. Fever 103.1? recorded overnight. Denies chest pain or shortness of breath. Tolerating orals without nausea vomiting. Exam Narrative: Exam Narrative: PHYSICAL EXAM General: Pleasant, appears tired otherwise NAD HEENT: Normocephalic, atraumatic, sclera white, EOMI, oral mucosa dry Cardiovascular: RRR, S1S2. No pitting edema Pulmonary: CTA bilaterally without rhonchi, rales, expiratory wheezes. No dyspnea on room air Abdominal: Soft, nondistended, NTTP Neurological: Alert, answering questions appropriately, cranial nerves intact, no focal findings Extremities: No gross joint deformity or swelling. AROMI. Neurovascularly intact Skin: Warm, dry. Const: Vital Signs, click to edit/add: Vital Signs - 24 hr 06/30/24 16:38 06/30/24 16:42 06/30/24 16:44 Temperature 100.5 F H Pulse Rate 94 Pulse Rate [Left P ulse Oximeter] Pulse Rate [Right Pulse Oximeter] 99 Respiratory Rate 20 Blood Pressure Blood Pressure [Le ft Arm] Blood Pressure [Le ft Upper Arm] 152/74 H Blood Pressure [Ri ght Arm] Pulse Oximetry 96 94 Oxygen Delivery Me od Room Air 06/30/24 16:45 06/30/24 17:00 06/30/24 17:15 Temperature Pulse Rate 99 98 97 Pulse Rate [Left P ulse Oximeter] Pulse Rate [Right Pulse Oximeter] Respiratory Rate Blood Pressure 133/74 Blood Pressure [Le ft Arm] Blood Pressure [Le ft Upper Arm] Blood Pressure [Ri ght Arm] Pulse Oximetry 94 95 95 Oxygen Delivery Fl thod 06/30/24 17:18 06/30/24 17:32 06/30/24 17:33 Temperature Pulse Rate 96 96 Pulse Rate [Left P ulse Oximeter] Pulse Rate [Right Pulse Oximeter] Respiratory Rate Blood Pressure 145/75 H Blood Pressure [Le ft Arm] Blood Pressure [Le ft Upper Arm] Blood Pressure [Ri ght Arm] Pulse Oximetry 99 98 Oxygen Delivery Me thod 06/30/24 17:43 06/30/24 17:57 06/30/24 18:00 Temperature Pulse Rate 101 H 101 H Pulse Rate [Left P ulse Oximeter] Pulse Rate [Right Pulse Oximeter] Respiratory Rate Blood Pressure Blood Pressure [Le ft Arm] Blood Pressure [Le ft Upper Arm] Blood Pressure [Ri ght Arm] Pulse Oximetry 99 93 96 Oxygen Delivery Me thod 06/30/24 18:01 06/30/24 18:02 06/30/24 18:03 Temperature 99.1 F 99.0 F Pulse Rate 101 H Pulse Rate [Left P ulse Oximeter] Pulse Rate [Right Pulse Oximeter] 98 Respiratory Rate 22 18 Blood Pressure 169/94 H Blood Pressure [Le ft Arm] Blood Pressure [Le ft Upper Arm] 169/94 H Blood Pressure [Ri ght Arm] Pulse Oximetry 97 99 Oxygen Delivery Me od Room Air 06/30/24 18:15 06/30/24 18:32 06/30/24 19:00 Temperature 101.2 F H Pulse Rate 98 Pulse Rate [Left P ulse Oximeter] Pulse Rate [Right Pulse Oximeter] Respiratory Rate Blood Pressure 168/78 H Blood Pressure [Le ft Arm] Blood Pressure [Le ft Upper Arm] Blood Pressure [Ri ght Arm] Pulse Oximetry [facility] 19[facility]02 06/30/24 20:02 06/30/24 20:36 Temperature 98.1 F Pulse Rate Pulse Rate [Left P ulse Oximeter] 96 Pulse Rate [Right Pulse Oximeter] Respiratory Rate 18 Blood Pressure 153/69 H 123/62 Blood Pressure [Le ft Arm] 129/76 Blood Pressure [Le ft Upper Arm] Blood Pressure [Ri ght Arm] Pulse Oximetry 93 [facility] 06/30/24 21:05 06/30/24 23:00 07/01/24 00:29 Temperature Pulse Rate Pulse Rate [Left P ulse Oximeter] 96 Pulse Rate [Right Pulse Oximeter] Respiratory Rate 18 18 18 Blood Pressure Blood Pressure [Le ft Arm] Blood Pressure [Le ft Upper Arm] Blood Pressure [Ri ght Arm] Pulse Oximetry 93 93 Oxygen Delivery Me od Room Air Room Air 07/01/24 00:29 07/01/24 00:32 07/01/24 01:45 Temperature 103.1 F H 103.1 F H 102.5 F H Pulse Rate Pulse Rate [Left P ulse Oximeter] 103 H Pulse Rate [Right Pulse Oximeter] Respiratory Rate 18 Blood Pressure Blood Pressure [Le ft Arm] 139/79 Blood Pressure [Le ft Upper Arm] Blood Pressure [Ri ght Arm] Pulse Oximetry 93 Oxygen Delivery Me thod Room Air 07/01/24 01:45 07/01/24 02:58 07/01/24 06:22 Temperature 102.5 F H 99.5 F 100.7 F H Pulse Rate Pulse Rate [Left P ulse Oximeter] 94 83 Pulse Rate [Right Pulse Oximeter] Respiratory Rate 16 Blood Pressure Blood Pressure [Le ft Arm] 99/59 L Blood Pressure [Le ft Upper Arm] Blood Pressure [Ri ght Arm] 112/70 Pulse Oximetry 93 Oxygen Delivery Me thod Room Air 07/01/24 06:23 07/01/24 08:02 07/01/24 08:04 Temperature 100.7 F H 98.7 F Pulse Rate Pulse Rate [Left P ulse Oximeter] 82 Pulse Rate [Right Pulse Oximeter] Respiratory Rate 14 14 Blood Pressure Blood Pressure [Le ft Arm] Blood Pressure [Le ft Upper Arm] Blood Pressure [Ri ght Arm] 106/64 Pulse Oximetry 94 94 Oxygen Delivery Me thod Room Air Room Air Labs Labs: Laboratory Results - last 24 hr 06/30/24 06/30/24 07/01/24 17:25 17:30 06:04 WBC 11.12 H 10.62 RBC 4.18 L 4.12 L Hgb 12.3 L 12.2 L Hct 38.1 37.8 MCV 91 92 MCH 29 30 MCHC 32 32 RDW Coeff of Miriam 13.9 14.2 Plt Count 83 L 77 L Neut % (Auto) 84.6 H 75.7 H Lymph % (Auto) 4.6 L 10.2 L [place] % (Auto) 10.3 13.0 H Eos % (Auto) 0.0 0.0 Baso % (Auto) 0.1 0.3 Neut # (Auto) 9.40 H 8.00 H Lymph # (Auto) 0.50 L 1.10 [place] # (Auto) 1.10 H 1.40 H Eos # (Auto) 0.00 0.00 Baso # (Auto) 0.00 0.03 Abs Immat Gran (auto) 0.00 0.09 Imm/Tot Granulo (auto) 0.4 0.8 VBG pH 7.416 VBG pCO2 35 L VBG pO2 < 30.1 VBG HCO3 23 Sodium 133 L 134 L Potassium 4.2 4.1 Chloride 104 102 Carbon Dioxide 21 24 Anion Gap 8 8 BUN 31 H 30 Creatinine 1.5 1.9 H Estimated Creat Clear 55.86 44.10 Estimated GFR 49 37 Glucose 317 H 362 H* Lactate 1.3 Calcium 8.3 L 8.6 Total Bilirubin 1.3 AST 28 ALT 23 Alkaline Phosphatase 92 C-Reactive Protein 21.5 H 30.9 H Total Protein 7.1 Albumin 4.3 Procalcitonin 0.90 H Urine Color Yellow Urine Appearance Clear Urine pH 5.5 Ur Specific [place] 1.015 Urine Protein 1+ A Urine Glucose (UA) 2+ A Urine Ketones Negative Urine Blood 2+ A Urine Nitrite Negative Urine Bilirubin Negative Urine Urobilinogen 0.2 Ur Leukocyte Esterase Trace A Urine RBC 2-5 A Urine WBC 2-5 Ur Squamous Epith Cells None Urine Bacteria Many A SARS-CoV-2 (PCR) Negative SARS-CoV-2 Influenza Type A (PCR) Negative PCR FLU A Influenza Type B (PCR) Negative PCR FLU B RSV (PCR) Negative PCR RSV
--- NOTE | 2024-07-01 10:59 | REH.OT ---
Orders received for OT eval and treat. Patient not feeling well and will be evaluated on 07/02/24.
[2024-07-01] MEDS: ACETAMINOPHEN 500 MG TABLET 1000 MG PO (12:19)
--- NOTE | 2024-07-01 16:38 | PC.NURSE ---
Shift Summary: Patient pleasant and cooperative. Up with 1 assist, walker and gait belt. Patient self caths to void. Tmax 100 degrees, managed with PRN acetaminophen and encouraged fluids. Encouraged to ambulate in [place] with staff, ambulated x2. C/o headache this afternoon, managed with PRN medication. Good appetite, denies nausea.
[2024-07-01] MEDS: ATORVASTATIN 10 MG TABLET 20 MG PO (21:16)
[2024-07-01] MEDS: ENOXAPARIN 40 MG/0.4 ML INJ SUBCUT (21:16)
[2024-07-01] MEDS: TRAZODONE HCL 50 MG TABLET 200 MG PO (21:17)
[2024-07-01] MEDS: MELATONIN 3 MG TABLET 9 MG PO (21:17)
--- NOTE | 2024-07-01 22:36 | PC.NURSE ---
End of shift note [id number]: Pt alert & oriented x 4 and able to make needs known. VSS and pt has been afebrile this evening. He has been denying pain when asked and transfers/ambulates with assist of 1 using gait belt though refuses to use walker despite staff encouragement. Condom cath hooked up to catheter bag at HS per pt's home routine. Pt continues on IV Zosyn. Blood glucose of 260 at HS. Pt remains on NS at 50 mL/hr and IV to L forearm remains patent. Bed alarm utilized due to pt hx of multiple falls.
[2024-07-02] MEDS: PIPERACILLIN/TAZOBACTAM 3.375 GM in 0.9 % SODIUM CHLORIDE Mini-bag 100 ML IVPB ×2 (01:41→06:53)
[2024-07-02 02:29] VITALS: TEMP 38.6
[2024-07-02] MEDS: ACETAMINOPHEN 500 MG TABLET 1000 MG PO (02:29)
[2024-07-02 02:34] VITALS: BP 104/54; PULSE 85; RESP 16; TEMP 38.6; O2SAT 93
[2024-07-02 04:31] VITALS: TEMP 36.6
--- NOTE | 2024-07-02 06:31 | PC.NURSE ---
Patient A&O. VSS with one febrile episode of 101.4 F at 0300. PRN Tylenol given and was effective. Temp. was 97.6 F at recheck. Slept well throughout the night.
[2024-07-02 07:00] VITALS: BP 154/72; PULSE 79; RESP 16; TEMP 36.9; O2SAT 93
[2024-07-02 08:14] VITALS: TEMP 36.4
[2024-07-02 08:38] LABS: Basophils Absolute Auto 0.02 K/uL (0.00-0.30); Basophils Percent Auto 0.3 % (0.0-3.0); Eosinophils Absolute Auto 0.07 K/uL (0.00-0.50); Eosinophils Percent Auto 0.9 % (0.0-7.0); Hematocrit 38.1 % (37.0-53.0); Hemoglobin* 12.1 gm/dL (13.5-17.5); Immature Granulocytes Abs Auto 0.04 K/uL (0.00-0.30); Immature Granulocytes Pct Auto 0.5 %; Lymphocytes Percent Auto 14.5 % (20-44); Mean Corpuscular HGB Conc 32 gm/dL (32-36); Mean Corpuscular Hemoglobin 29 pg (26-34); Mean Corpuscular Volume 91 fL (80-100); Monocytes Percent Auto 12.6 % (0.0-11.0); Neutrophils Absolute Auto 5.58 K/uL (1.7-7.0); Neutrophils Percent Auto 71.2 % (42.0-72.0); Platelet Count* 75 K/uL (140-440); RDW Coefficient of Variation % 14.3 % (11.5-15.5); Red Blood Count 4.17 m/uL (4.30-5.90); White Blood Count* 7.84 K/uL (4.50-11.00)
[2024-07-02 08:51] LABS: Slide Review Reflex No
[2024-07-02 08:53] LABS: Chloride* 106 mmol/L (96-114); Potassium* 3.8 mmol/L (3.6-5.1); Sodium* 138 mmol/L (135-149)
[2024-07-02 08:56] LABS: Anion Gap 6 mEq/L (7-15); Blood Urea Nitrogen* 26 mg/dL (7-30); Carbon Dioxide* 26 mmol/L (20-32); Creatinine* 1.7 mg/dL (0.5-1.5); Est. Creatinine Clearance* 49.28; Estimated Glomerular Filt Rate 42 ml/min
[2024-07-02 08:57] LABS: Glucose* 135 mg/dL (60-115)
[2024-07-02] MEDS: CLOPIDOGREL 75 MG TABLET PO (08:58)
[2024-07-02] MEDS: LACTOBACILLUS ACIDOPHILUS 1 TABLET 1 TAB PO (08:58)
[2024-07-02] MEDS: PIOGLITAZONE HCL 15 MG TABLET 30 MG PO (08:58)
[2024-07-02] MEDS: OMEPRAZOLE 20 MG CAPSULE DR PO (08:58)
[2024-07-02] MEDS: CARBIDOPA-LEVODOPA 25-100 TABLET 2 TAB PO (08:58)
[2024-07-02] MEDS: DULOXETINE 30 MG CAPSULE DR 120 MG PO (08:58)
[2024-07-02] MEDS: glipiZIDE 5 MG TABLET 10 MG PO (08:58)
[2024-07-02] MEDS: LORATADINE 10 MG TABLET PO (08:59)
[2024-07-02] MEDS: PREGABALIN 100 MG CAPSULE 200 MG PO (09:02)
--- NOTE | 2024-07-02 10:37 | PM.IMHP1 ---
Hospitalist- H&P: HPI History of Present Illness Date Seen: 07/02/24 Chief complaint: Falls Narrative: Cory Vergara is a 74 [address] [facility] Medical History (Updated 07/01/24 @ 10:31 by Lynne Meeks PA-C) Liver lesion ?K76.9 - Liver disease, unspecified (ICD-10) Prostate cancer ?C61 - Malignant neoplasm of prostate (ICD-10) Vertebral basilar insufficiency ?G45.0 - Vertebro-basilar artery syndrome (ICD-10) Neurogenic bladder ?N31.9 - Neuromuscular dysfunction of bladder, unspecified (ICD-10) Chronic constipation ?K59.09 - Other constipation (ICD-10) Malignant neoplasm of urinary bladder ?C67.9 - Malignant neoplasm of bladder, unspecified (ICD-10) Severe episode of recurrent major depressive disorder, without psychotic features ?F33.2 - Major depressive disorder, recurrent severe without psychotic features (ICD-10) Stage 3 chronic kidney disease ?N18.30 - Chronic kidney disease, stage 3 unspecified (ICD-10) Subungual hematoma of great toe of left foot ?S90.212A - Contusion of left great toe with damage to nail, initial encounter (ICD-10) Parkinson disease ?G20 - Parkinson's disease (ICD-10) Adenomatous colon polyp ?D12.6 - Benign neoplasm of colon, unspecified (ICD-10) Moderate episode of recurrent major depressive disorder ?F33.1 - Major depressive disorder, recurrent, moderate (ICD-10) Periodic limb movement disorder ?G47.61 - Periodic limb movement disorder (ICD-10) GERD without esophagitis ?K21.9 - Gastro-esophageal reflux disease without esophagitis (ICD-10) Type II diabetes mellitus ?E11.9 - Type 2 diabetes mellitus without complications (ICD-10) Surgical History (Updated 06/30/24 @ 21:22 by Lukasz Chaves MD) Hx of rotator cuff surgery ?Z98.890 - Other specified postprocedural states (ICD-10) Hx of total cystectomy ?Z90.6 - Acquired absence of other parts of urinary tract (ICD-10) Hx of appendectomy ?Z90.49 - Acquired absence of other specified parts of digestive tract (ICD-10) Family History (Updated 06/30/24 @ 21:25 by Lukasz Chaves MD) Father Heart disease Daughter Breast cancer Social History (Updated 06/30/24 @ 21:25 by Lukasz Chaves MD) Narrative: He lives with his . 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 Code status is full. He does not smoke. He rarely drinks alcohol. What is your current living situation?: I presently have a place to live Problems where you live: no known problems Problems where you live details: N/A In the past 12 months, utilities in danger of being shut off: no In past 12 months, lack of transportation kept you from medical appts, meetings, work, or getting things needed for daily living: no In the past 12 mos, have been you worried that your food would run out before you had money to buy more?: never true In the past 12 mos, the food you bought just didn't last and you didn't have money to buy more?: never true Highest level of school completed/degree received: Bachelor's degree Smoking Status: Never smoker Second hand tobacco smoke exposure: No How often do you have a drink containing alcohol: never How often do you have six or more drinks on one occasion: Never AUDIT-C Alcohol total score: 0 Non-prescribed substance use: denies use Caffeine: Yes (1 coffee daily) How often does anyone, including family, friends and others, physically hurt you: never How often does anyone, including family, friends and others, insult or talk down to you: never How often does anyone, including family, friends and others, threaten you with harm: never How often does anyone, including family, friends and others, scream or curse at you: never Do you think of yourself as: straight/heterosexual Gender Identity: male service: Yes Meds Home Medications and Allergies Home Medications ?Medication ?Instructions ?Recorded ?Confirmed ?Type atorvastatin 20 mg tablet (Lipitor) 20 mg PO DAILY 10/22/22 07/01/24 History carbidopa 25 mg-levodopa 100 mg 2 tab PO TID 10/22/22 07/01/24 History tablet (Sinemet) clopidogrel 75 mg tablet (Plavix) 75 mg PO DAILY 10/22/22 07/01/24 History duloxetine 60 mg capsule,delayed 120 mg PO DAILY 10/22/22 07/01/24 History release (Cymbalta) glipizide 10 mg tablet 10 mg PO BID 10/22/22 07/01/24 History loratadine 10 mg tablet (Claritin) 10 mg PO DAILY 10/22/22 07/01/24 History melatonin 3 mg capsule 9 mg PO QHS 10/22/22 07/01/24 History metformin 500 mg tablet 1,000 mg PO BID 10/22/22 07/01/24 History pantoprazole 20 mg tablet,delayed 20 mg PO DAILY 10/22/22 07/01/24 History release pregabalin 200 mg capsule (Lyrica) 200 mg PO BID 10/22/22 07/01/24 History tadalafil 20 mg tablet (Cialis) 20 mg PO DAILY PRN 10/22/22 07/01/24 History trazodone 100 mg tablet 200 mg PO HS 10/22/22 07/01/24 History albuterol sulfate 90 mcg/actuation 1 - 2 puff inhalation Q4H PRN 07/01/24 07/01/24 History aerosol inhaler wheezing methylphenidate HCl 10 mg tablet 10 - 20 mg PO BID 07/01/24 07/01/24 History pioglitazone 30 mg tablet 30 mg PO DAILY 07/01/24 07/01/24 History Allergies Allergy/AdvReac Type Severity Reaction Status Date / Time Seasonal allergies Allergy Unknown Uncoded 06/30/24 20:51 Exam Const: Vital Signs, click to edit/add: Vital Signs - 24 hr 07/01/24 11:00 07/01/24 15:00 07/01/24 15:00 Temperature 100 F H 98.3 F Pulse Rate [Left P ulse Oximeter] 88 82 Respiratory Rate 14 16 16 Blood Pressure [Le ft Arm] Blood Pressure [Ri ght Arm] 117/62 100/54 L Pulse Oximetry 95 93 93 Oxygen Delivery Me thod Room Air Room Air Room Air 07/01/24 19:41 07/01/24 23:00 07/01/24 23:00 Temperature 97.7 F 98.1 F Pulse Rate [Left P ulse Oximeter] 81 90 Respiratory Rate 16 20 16 Blood Pressure [Le ft Arm] 120/55 L Blood Pressure [Ri ght Arm] 124/78 Pulse Oximetry 94 94 94 Oxygen Delivery Me thod Room Air Room Air Room Air 07/01/24 23:00 07/02/24 02:29 07/02/24 02:34 Temperature 101.4 F H 101.4 F H Pulse Rate [Left P ulse Oximeter] 90 85 Respiratory Rate 16 16 Blood Pressure [Le ft Arm] 104/54 L Blood Pressure [Ri ght Arm] Pulse Oximetry 93 Oxygen Delivery Me thod Room Air 07/02/24 04:31 07/02/24 07:00 07/02/24 07:00 Temperature 97.8 F Pulse Rate [Left P ulse Oximeter] 79 Respiratory Rate 16 16 Blood Pressure [Le ft Arm] Blood Pressure [Ri ght Arm] Pulse Oximetry 93 Oxygen Delivery Me thod Room Air 07/02/24 07:00 07/02/24 08:14 Temperature 98.4 F 97.6 F Pulse Rate [Left P ulse Oximeter] 79 Respiratory Rate 16 Blood Pressure [Le ft Arm] 154/72 H Blood Pressure [Ri ght Arm] Pulse Oximetry 93 Oxygen Delivery Me thod Room Air Hospitalist - H&P: Result Labs Labs: Short CBC 07/02/24 Range/Units 08:30 WBC 7.84 (4.50-11.00) K/uL Hgb 12.1 L (13.5-17.5) gm/dL Hct 38.1 (37.0-53.0) % Plt Count 75 L (140-440) K/uL BMP 07/02/24 08:30 Sodium 138 Potassium 3.8 Chloride 106 Carbon Dioxide 26 BUN 26 Creatinine 1.7 H Glucose 135 H Calcium 9.0
--- NOTE | 2024-07-02 11:17 | P.DS_ITS ---
DS: Providers Provider Date Seen: 07/02/24 Date of admission: 06/30/24 20:57 Primary care physician: Teddy Greco MD Admitting Clinician: Lukasz Chaves MD Consults: 06/30/24 20:59 Consult to Occupational Therapy [CONS] Routine Comment: Reason(s) for OT Consult:: Evaluate and Treat Any Restrictions?:: No Restrictions Consult to Physical Therapy [CONS] Routine Comment: Reason(s) for PT Consult:: Evaluate and Treat Any Restrictions?:: No Restrictions Attending Physician on discharge: BONITA Joy, [facility] Hospitalist Date of Discharge: 07/02/24 DS: Diagnosis Discharge Diagnosis (1) Fever: Status: Acute Problem details: Patient presents with fever and profound weakness. CT chest without consolidation/infiltrates. Urine culture growing out Klebsiella pneumoniae, pansensitive other than to ampicillin or nitrofurantoin. Patient received IV Zosyn during hospital course, transition to cefpodoxime at time of discharge, to complete 14 day course of antibiotics. Leukocytosis resolved. Intermittent fevers noted. Otherwise feeling improved and requesting to discharge. (2) UTI (urinary tract infection): Status: Acute Problem details: Confirmed. At risk, chronic self catheterization. Previous history of UTIs. Urine culture as above grew out Klebsiella pneumonia. IV Zosyn transition to oral cefpodoxime. Consider outpatient follow-up Urology if recurring infections. (3) Weakness: Status: Acute Problem details: Acute on chronic. Chronic weakness primarily related to Parkinson's. Acute weakness related to current infection. Unable to walk independently. PT and OT to evaluated. Back to baseline prior to discharge. (4) Falls: Status: Acute Problem details: Recurrent recent falls related to acute on chronic weakness with Parkinson's (5) Parkinson disease: Status: Acute Problem details: Progressive disability (6) Neurogenic bladder: Status: Acute Problem details: Self catheterizes p.r.n., incontinent at night when he uses a condom cath (7) Type II diabetes mellitus: Status: Acute Problem details: Most recent A1c 7.1 Continued on home medications, resume metformin at time of discharge. (8) Liver lesion: Status: Acute Problem details: 2.8 cm indeterminate density lesion in the liver which is new since 2014. Incidentally found on CT from 06/30/2024. Follow-up with outpatient liver protocol MRI or CT. (9) Hx of total cystectomy: Status: Acute Problem details: Cystectomy, prostatectomy, neobladder 2009 (10) Stage 3 chronic kidney disease: Status: Acute Problem details: With SHANNAN today Creatinine 1.9, up from 1.5 on admission, baseline 1.4-1.5. Down trending prior to discharge. Hold metformin, avoid nephrotoxic medications, continue to monitor while on Zosyn adjusting dose as necessary. Recheck during outpatient follow-up appointment next week. DS: Summary Hospital Course Hospital Course: [age] year old male was admitted to the medical floor for management urinary tract infection. Course of care and details as noted above. Remainder of chronic medical comorbidities were monitored and managed with home medications. Status at Discharge Functional status at discharge: independent ambulation Overall status at discharge: patient is back to baseline Time Spent with Patient Time attestation: Total time spent providing and/or coordinating discharge services: Time spent: Greater than 30 minutes Exam Narrative: Exam Narrative: PHYSICAL EXAM General: Pleasant, conversant, NAD Cardiovascular: RRR Pulmonary: No dyspnea Neurological: Alert, answering questions appropriately Skin: Warm, dry. Const: Vital Signs, click to edit/add: Vital Signs - 24 hr 07/01/24 15:00 07/01/24 15:00 07/01/24 19:41 Temperature 98.3 F 97.7 F Pulse Rate [Left P ulse Oximeter] 82 81 Respiratory Rate 16 16 16 Blood Pressure [Le ft Arm] Blood Pressure [Ri ght Arm] 100/54 L 124/78 Pulse Oximetry 93 93 94 Oxygen Delivery Me thod Room Air Room Air Room Air 07/01/24 23:00 07/01/24 23:00 07/01/24 23:00 Temperature 98.1 F Pulse Rate [Left P ulse Oximeter] 90 90 Respiratory Rate 20 16 16 Blood Pressure [Le ft Arm] 120/55 L Blood Pressure [Ri ght Arm] Pulse Oximetry 94 94 Oxygen Delivery Me thod Room Air Room Air 07/02/24 02:29 07/02/24 02:34 07/02/24 04:31 Temperature 101.4 F H 101.4 F H 97.8 F Pulse Rate [Left P ulse Oximeter] 85 Respiratory Rate 16 Blood Pressure [Le ft Arm] 104/54 L Blood Pressure [Ri ght Arm] Pulse Oximetry 93 Oxygen Delivery Me thod Room Air 07/02/24 07:00 07/02/24 07:00 07/02/24 07:00 Temperature 98.4 F Pulse Rate [Left P ulse Oximeter] 79 79 Respiratory Rate 16 16 16 Blood Pressure [Le ft Arm] 154/72 H Blood Pressure [Ri ght Arm] Pulse Oximetry 93 93 Oxygen Delivery Me thod Room Air Room Air 07/02/24 08:14 Temperature 97.6 F Pulse Rate [Left P ulse Oximeter] Respiratory Rate Blood Pressure [Le ft Arm] Blood Pressure [Ri ght Arm] Pulse Oximetry Oxygen Delivery Me thod DS: Data Data Completed and Pending Labs on day of discharge: Labs from last 24 hours 07/02/24 08:30 WBC 7.84 RBC 4.17 L Hgb 12.1 L Hct 38.1 MCV 91 MCH 29 MCHC 32 RDW Coeff of Miriam 14.3 Plt Count 75 L Neut % (Auto) 71.2 Lymph % (Auto) 14.5 L [place] % (Auto) 12.6 H Eos % (Auto) 0.9 Baso % (Auto) 0.3 Neut # (Auto) 5.58 Lymph # (Auto) 1.10 [place] # (Auto) 1.00 H Eos # (Auto) 0.07 Baso # (Auto) 0.02 Abs Immat Gran (auto) 0.04 Imm/Tot Granulo (auto) 0.5 Sodium 138 Potassium 3.8 Chloride 106 Carbon Dioxide 26 Anion Gap 6 L BUN 26 Creatinine 1.7 H Estimated Creat Clear 49.28 Estimated GFR 42 Glucose 135 H Calcium 9.0 Discharge Plan Discharge Disposition: Home, Self-Care Date of Admission: 06/30/24 20:57 Attending Provider on Discharge: Lynne Meeks Primary Care Provider: Teddy Greco Condition: Improved Anticipated Discharge Date/Time: 07/02/24 10:29 Discharge Medications: New cefpodoxime 200 mg tablet 200 mg PO Q12H 12 Days Qty: 24 0RF Rx Instructions: must administer with a meal/food Continued atorvastatin [Lipitor] 20 mg tablet 20 mg PO DAILY carbidopa-levodopa [Sinemet] 25-100 mg tablet 2 tab PO TID clopidogrel [Plavix] 75 mg tablet 75 mg PO DAILY duloxetine [Cymbalta] 60 mg capsule,delayed release(DR/EC) 120 mg PO DAILY glipizide 10 mg tablet 10 mg PO BID loratadine [Claritin] 10 mg tablet 10 mg PO DAILY melatonin 3 mg capsule 9 mg PO QHS metformin 500 mg tablet 1,000 mg PO BID pantoprazole 20 mg tablet,delayed release (DR/EC) 20 mg PO DAILY pregabalin [Lyrica] 200 mg capsule 200 mg PO BID tadalafil [Cialis] 20 mg tablet 20 mg PO DAILY PRN Rx Instructions: administer approximately 30min before sexual activity; do not use more than 1 dose per 24hrs trazodone 100 mg tablet 200 mg PO HS albuterol sulfate 90 mcg/actuation HFA aerosol inhaler 1 - 2 puff INHALATION Q4H PRN (Reason: wheezing) methylphenidate HCl 10 mg tablet 10 - 20 mg PO BID Rx Instructions: 10 MG IN AM 5 MG IN AFTERNOON pioglitazone 30 mg tablet 30 mg PO DAILY Discharge Orders: Discharge Order (Routine); Ordered 07/02/24 Ordered By: Lynne Meeks Patient Education: Cefpodoxime Proxetil (By mouth), Urinary Tract Infection in Men (GEN) Additional Instructions: Finish the 12 day course of cefpodoxime for your UTI. Follow up with your PCP. You may need to see Urology if you have recurring infections. A 2.8 cm indeterminate density lesion in the liver was found on CT (06/30/24) which is new since 2014. Follow-up with outpatient liver protocol MRI or CT. Your PCP can schedule this. Activity Level: Activity as Tolerated Discharge Diet: Diabetic Follow Up Appointments: Teddy Greco MD [Primary Care Provider] - () Erika Kim PA-C [Referring] - 07/06/24 7:30 am ([facility] for follow [facility]. PCP was unavailable during desired time frame. Please bring photo ID to appointment.) Forms: [employer] Info Instructions
--- NOTE | 2024-07-02 12:27 | PC.NURSE ---
Discharge: patient alert and oriented x4, tolerating a reg. diet. Patient's VSS, afebrile this shift. Patient denies N/V/SOB. Patient discharged to home today accompanied by dtr-in-law. IV removed intact. Discharge instructions given, patient verbalized understanding a paperwork signed. Patient's belongings sheet signed.
--- NOTE | 2024-07-02 17:22 | REH.OT ---
OT: Initial attempt to see patient at 1100 was with PT, and declines OT and additional needs. However returned to see patient and patient ambulating out of room in midst of d/c to home. Although appears patient would benefit from OP therapies, declines additional needs. Patient can follow up with PCP if opts to pursue OP therapies once he has returned home.
== END 2024-07-02 11:15 | disposition home or self-care (01) | DRG 699 ==
LOC: ED 19:54 → MEDSURG 20:18
PROVIDERS: Physician Assistant; Admitting Provider Family Medicine; Emergency Provider Family Medicine; PCP Family Medicine; Visit Provider Family Medicine
DX: T83.518A Infection and inflammatory reaction due to other urinary catheter, initial encounter (principal); F33.9 Major depressive disorder, recurrent, unspecified; N39.0 Urinary tract infection, site not specified; N17.9 Acute kidney failure, unspecified; Z16.11 Resistance to penicillins; Z16.29 Resistance to other single specified antibiotic; B96.1 Klebsiella pneumoniae [K. pneumoniae] as the cause of diseases classified elsewhere; N31.9 Neuromuscular dysfunction of bladder, unspecified; G20.A1 Parkinson's disease without dyskinesia, without mention of fluctuations; E11.22 Type 2 diabetes mellitus with diabetic chronic kidney disease; E11.65 Type 2 diabetes mellitus with hyperglycemia; N18.30 Chronic kidney disease, stage 3 unspecified; I12.9 Hypertensive chronic kidney disease with stage 1 through stage 4 chronic kidney disease, or unspecified chronic kidney disease; Z85.51 Personal history of malignant neoplasm of bladder; Z87.440 Personal history of urinary (tract) infections; K76.9 Liver disease, unspecified; K21.9 Gastro-esophageal reflux disease without esophagitis; Z85.46 Personal history of malignant neoplasm of prostate; Z90.6 Acquired absence of other parts of urinary tract
CPT/HCPCS: 36415; 70450; 71045; 71260; 72125; 74177; 80048; 80053; 81001; 82803; 82962; 83605; 84145; 85025; 86140; 87086; 87186; 87631; 93005; 94761; 97112; 97162; 97530; 99284; A9270; J1650; J2543; J7030; Q9967

== ENCOUNTER 2024-07-18 09:46 | Emergency (ER) | payer MEDICARE, SELFPAY ==
[2024-07-18] VITALS (33 sets, daily range): BP systolic 88–163; BP diastolic 53–92; PULSE 72–87; RESP 18; TEMP 36.5–36.9; O2SAT 90–100; BMI 27.3
--- NOTE | 2024-07-18 10:53 | ED.GENADULT ---
HPI - General Adult General Date Seen: 07/18/24 Chief complaint: Weakness Stated complaint: weakness, fall Time Seen by Provider: 07/18/24 10:52 History of Present Illness HPI narrative: 74-year-old male with a past medical history of type 2 diabetes, chronic kidney disease, prostate cancer, bladder cancer, neurogenic bladder, GERD, depression, Medical record indicates shows that he was in the ER on 06/30 with stumbling and falls. He had a fever. COVID negative. Chest x-ray normal. Treated for possible UTI. Urinalysis was not very abnormal but urine culture did grow Klebsiella sensitive to everything except for ampicillin and nitrofurantoin received IV Zosyn in the hospital. Home on oral cefpodoxime. He had been feeling better and finished his course of antibiotics. The he started to feel ill again yesterday. He just felt a little bit off and fatigued and a little bit weak. This morning he woke up and was feeling really weak. Both of his legs were very weak and could barely lift them to get out of bed. He was able to get up and walk into the bathroom. In the bathroom he got so weak and his legs got shaky that he fell sideways against the wall and then lowered himself to the ground. He did not actually faint or lose consciousness. No injuries from the fall. He was very weak and almost could not get off the floor, but his was able to assist him up and she brought him here to the ER. He does have a history of bladder cancer with neobladder. He normally self catheterizes. He has not had any urinary tract infection in years, up until he had his UTI here earlier this month. Urine has been fairly dark and as always is little bit cloudy with sediment (he always has sediment in his urine because of the mucus from his neobladder). Urine is not really changed in its color or cloudiness lately. He also notes that he has had a funny taste in his mouth a past couple of days. No fever or chills. No cough. No stuffy nose. No sore throat. No nausea or vomiting. No diarrhea. He has been drinking plenty of fluids. However his notes that he has had somewhat darker yellow urine in the past couple of days. No injuries from the fall this morning. Related Data Home Medications ?Medication ?Instructions ?Recorded ?Confirmed atorvastatin 20 mg tablet (Lipitor) 20 mg PO DAILY 10/22/22 07/01/24 carbidopa 25 mg-levodopa 100 mg 2 tab PO TID 10/22/22 07/01/24 tablet (Sinemet) clopidogrel 75 mg tablet (Plavix) 75 mg PO DAILY 10/22/22 07/01/24 duloxetine 60 mg capsule,delayed 120 mg PO DAILY 10/22/22 07/01/24 release (Cymbalta) glipizide 10 mg tablet 10 mg PO BID 10/22/22 07/01/24 loratadine 10 mg tablet (Claritin) 10 mg PO DAILY 10/22/22 07/01/24 melatonin 3 mg capsule 9 mg PO QHS 10/22/22 07/01/24 metformin 500 mg tablet 1,000 mg PO BID 10/22/22 07/01/24 pantoprazole 20 mg tablet,delayed 20 mg PO DAILY 10/22/22 07/01/24 release pregabalin 200 mg capsule (Lyrica) 200 mg PO BID 10/22/22 07/01/24 tadalafil 20 mg tablet (Cialis) 20 mg PO DAILY PRN 10/22/22 07/01/24 trazodone 100 mg tablet 200 mg PO HS 10/22/22 07/01/24 albuterol sulfate 90 mcg/actuation 1 - 2 puff inhalation Q4H PRN 07/01/24 07/01/24 aerosol inhaler wheezing methylphenidate HCl 10 mg tablet 10 - 20 mg PO BID 07/01/24 07/01/24 pioglitazone 30 mg tablet 30 mg PO DAILY 07/01/24 07/01/24 Previous Rx's ?Medication ?Instructions ?Recorded cefpodoxime 200 mg tablet 200 mg PO Q12H 12 days #24 tabs 07/02/24 cefdinir 300 mg capsule 300 mg PO BID 10 days #20 caps 07/18/24 Allergies Allergy/AdvReac Type Severity Reaction Status Date / Time Seasonal allergies Allergy Unknown Uncoded 06/30/24 20:51 PFSH [facility] Medical History (Updated 07/18/24 @ 14:04 by Renard Benavides MD) Liver lesion ?K76.9 - Liver disease, unspecified (ICD-10) Prostate cancer ?C61 - Malignant neoplasm of prostate (ICD-10) Vertebral basilar insufficiency ?G45.0 - Vertebro-basilar artery syndrome (ICD-10) Neurogenic bladder ?N31.9 - Neuromuscular dysfunction of bladder, unspecified (ICD-10) Chronic constipation ?K59.09 - Other constipation (ICD-10) Malignant neoplasm of urinary bladder ?C67.9 - Malignant neoplasm of bladder, unspecified (ICD-10) Severe episode of recurrent major depressive disorder, without psychotic features ?F33.2 - Major depressive disorder, recurrent severe without psychotic features (ICD-10) Stage 3 chronic kidney disease ?N18.30 - Chronic kidney disease, stage 3 unspecified (ICD-10) Subungual hematoma of great toe of left foot ?S90.212A - Contusion of left great toe with damage to nail, initial encounter (ICD-10) Parkinson disease ?G20 - Parkinson's disease (ICD-10) Adenomatous colon polyp ?D12.6 - Benign neoplasm of colon, unspecified (ICD-10) Moderate episode of recurrent major depressive disorder ?F33.1 - Major depressive disorder, recurrent, moderate (ICD-10) Periodic limb movement disorder ?G47.61 - Periodic limb movement disorder (ICD-10) GERD without esophagitis ?K21.9 - Gastro-esophageal reflux disease without esophagitis (ICD-10) Type II diabetes mellitus ?E11.9 - Type 2 diabetes mellitus without complications (ICD-10) Surgical History (Updated 07/08/24 @ 00:01 by Suzi Perez) Hx of rotator cuff surgery ?Z98.890 - Other specified postprocedural states (ICD-10) Hx of total cystectomy ?Z90.6 - Acquired absence of other parts of urinary tract (ICD-10) Hx of appendectomy ?Z90.49 - Acquired absence of other specified parts of digestive tract (ICD-10) Family History (Updated 06/30/24 @ 21:25 by Lukasz Chaves MD) Father Heart disease Daughter Breast cancer Social History (Updated 06/30/24 @ 21:25 by Lukasz Chaves MD) Narrative: He lives with his . is [employer]. Code status is full. He does not smoke. He rarely drinks alcohol. What is your current living situation?: I presently have a place to live Problems where you live: no known problems Problems where you live details: N/A In the past 12 months, utilities in danger of being shut off: no In past 12 months, lack of transportation kept you from medical appts, meetings, work, or getting things needed for daily living: no In the past 12 mos, have been you worried that your food would run out before you had money to buy more?: never true In the past 12 mos, the food you bought just didn't last and you didn't have money to buy more?: never true Highest level of school completed/degree received: Bachelor's degree Smoking Status: Never smoker Second hand tobacco smoke exposure: No How often do you have a drink containing alcohol: never How often do you have six or more drinks on one occasion: Never AUDIT-C Alcohol total score: 0 Non-prescribed substance use: denies use Caffeine: Yes (1 coffee daily) How often does anyone, including family, friends and others, physically hurt you: never How often does anyone, including family, friends and others, insult or talk down to you: never How often does anyone, including family, friends and others, threaten you with harm: never How often does anyone, including family, friends and others, scream or curse at you: never Do you think of yourself as: straight/heterosexual Gender Identity: male service: Yes Exam Narrative: Exam Narrative: Constitutional: Initially was hypotensive at 1st triage blood pressure but since then has been normotensive. Looks a little bit tired and weak but overall ?nontoxic. ? Appears well-developed and well-nourished. Alert. Conversant. HENT: Head: Atraumatic. Nose: Nose normal. Mouth/Throat: Oral mucosa is clear and moist, not desiccated or cracked. no trismus. Pharynx normal. Tonsils symmetric. No tonsillar enlargement, erythema, or exudate. Eyes: Conjunctivae normal. EOM normal. Pupils equal, round, and reactive to light. No scleral icterus. Neck: Normal range of motion. Neck supple. No tracheal deviation present. Cardiovascular: Normal rate, regular rhythm. No gallop. No friction rub. No murmur heard. Symmetric radial artery pulses Pulmonary/Chest: Effort normal. No stridor. No respiratory distress. No wheezes. No rales. No rhonchi . No tenderness. Abdominal: Soft. Bowel sounds normal. No distension. No mass. No tenderness. No rebound. No guarding. No CVA tenderness Musculoskeletal: RUE: Normal range of motion. No tenderness. No deformity LUE: Normal range of motion. No tenderness. No deformity RLE: Normal range of motion. No edema. No tenderness. No deformity LLE: Normal range of motion. No edema. No tenderness. No deformity Neurological: Alert and oriented to person, place, and time. Normal strength. CN II-VII intact. No sensory deficit. GCS eye subscore is 4. GCS verbal subscore is 5. GCS motor subscore is 6. Normal coordination Skin: Skin is warm and dry. No rash noted. No pallor. Normal capillary refill. Psychiatric: Normal mood. Normal affect. Const: Vital Signs, click to edit/add: Vital Signs - 24 hr 07/18/24 10:09 07/18/24 10:20 07/18/24 10:21 Temperature 97.7 F Pulse Rate 75 75 Pulse Rate [Right Pulse Oximeter] 77 Respiratory Rate 18 Blood Pressure 114/67 Blood Pressure [Ri ght Upper Arm] 88/53 L Pulse Oximetry 96 95 95 [facility] 07/18/24 10:30 07/18/24 10:32 07/18/24 10:33 Temperature Pulse Rate 73 74 74 Pulse Rate [Right Pulse Oximeter] Respiratory Rate Blood Pressure 111/61 Blood Pressure [Ri ght Upper Arm] Pulse Oximetry 96 96 96 [facility] 07/18/24 10:45 07/18/24 10:47 07/18/24 11:00 Temperature Pulse Rate 74 76 76 Pulse Rate [Right Pulse Oximeter] Respiratory Rate Blood Pressure 104/65 Blood Pressure [Ri ght Upper Arm] Pulse Oximetry 95 95 96 Oxygen Delivery [place] [facility] 07/18/24 11:02 07/18/24 11:15 07/18/24 11:17 Temperature Pulse Rate 75 76 79 Pulse Rate [Right Pulse Oximeter] Respiratory Rate Blood Pressure 110/63 107/64 Blood Pressure [Ri ght Upper Arm] Pulse Oximetry 97 97 97 Oxygen Delivery Me thod 07/18/24 11:18 07/18/24 11:47 07/18/24 11:50 Temperature Pulse Rate 76 75 Pulse Rate [Right Pulse Oximeter] Respiratory Rate Blood Pressure 136/82 Blood Pressure [Ri ght Upper Arm] Pulse Oximetry 97 100 [facility] 07/18/24 12:00 07/18/24 12:02 07/18/24 13:07 Temperature 98.5 F Pulse Rate 74 72 Pulse Rate [Right Pulse Oximeter] Respiratory Rate Blood Pressure 134/79 Blood Pressure [Ri ght Upper Arm] Pulse Oximetry 94 91 Oxygen Delivery Me thod Course Course ED Course: Recheck-still normotensive, in fact blood pressure up to 160 systolic. Completed IV fluid bolus. Reevaluation(s) Reevaluation #1: Recheck-labs back in urine shows pyuria suggestive for UTI. COVID negative. Discussed results with patient and his . Rocephin ordered. Patient now reports feeling feverish and chilled. Repeat temperature is normal. Tylenol ordered. Patient is expressing desire to discharge home. Reevaluation #2: Recheck-Rocephin complete. Chills gone. Blood pressure remained stable. Patient still wants to discharge home. He passed ambulation trial from his bed out into the ER hallway and back under his own power with his cane. No dizziness, lightheadedness, or trouble walking. Vital Signs Vital signs: Initial Vital Signs Temperature 97.7 F 07/18/24 10:09 Temperature Source Temporal Artery Scan 07/18/24 10:09 Pulse Rate 77 07/18/24 10:09 Pulse Rhythm Regular 07/18/24 10:09 Respiratory Rate 18 07/18/24 10:09 Blood Pressure 88/53 L 07/18/24 10:09 Blood Pressure Mean 64 L 07/18/24 10:09 Blood Pressure Position Sitting 07/18/24 10:09 Pulse Oximetry 96 07/18/24 10:09 Oxygen Delivery Method Room Air 07/18/24 10:09 Vital Signs Temperature 97.7 F 07/18/24 10:09 Pulse Rate 77 07/18/24 10:09 Respiratory Rate 18 07/18/24 10:09 Blood Pressure 88/53 L 07/18/24 10:09 Pulse Oximetry 96 07/18/24 10:09 Oxygen Delivery Method Room Air 07/18/24 10:09 Temperature 98.5 F 07/18/24 13:07 Pulse Rate 84 07/18/24 13:47 Respiratory Rate 18 07/18/24 10:09 Blood Pressure 140/71 H 07/18/24 13:47 Pulse Oximetry 97 07/18/24 13:47 Oxygen Delivery Method Room Air 07/18/24 10:09 Medications Administered Medications: Discontinued Medications Generic Name Dose Route Start Last Admin Trade Name Salbador PRN Reason Stop Dose Admin Acetaminophen 1,000 mg 07/18/24 13:05 07/18/24 13:22 Acetaminophen 500 Mg Tablet PO 07/18/24 13:06 1,000 mg ONCE ONE Administration Sodium Chloride 1,000 mls @ 1,000 mls/hr 07/18/24 11:15 07/18/24 11:45 0.9 % Sodium Chloride 1000 Ml IV 07/18/24 12:14 1,000 mls/hr .Q1H TYSHAWN Administration Ceftriaxone Sodium 1 gm/ 100 mls @ 200 mls/hr 07/18/24 12:58 07/18/24 13:11 Sodium Chloride IVPB 07/18/24 12:59 200 mls/hr ONCE ONE Administration Medical Decision Making MDM Narrative Medical decision making narrative: Very pleasant 74-year-old gentleman with a history of bladder cancer and neobladder who self catheterizes presenting to the ER today with symptoms of generalized weakness leading to a lightheaded fall in his bathroom this morning. Similar to when he had a UTI here in the ER 3 weeks ago. Differential for his current symptoms is broad. Consider possible COVID with the change of taste in his mouth. COVID test negative. He is not coughing. No hypoxia. Lung sounds clear. Glucose somewhat elevated at 296 but no evidence for DKA or nonketotic hyperosmolar state. Hemoglobin mildly anemic at 12.1 but at baseline. No symptoms of recent external or GI bleed Urinalysis is abnormal suggesting UTI. Urine culture and blood culture pending. Treated with IV Rocephin here in the ER. Given his weakness and fall at home with hypotensive initial blood pressure reading here in the ER I am concerned about possible evolving sepsis. White count minimally elevated but CRP is elevated. Venous lactic is reassuring. He has had normal/slightly elevated blood pressures for the last several hours. Had a detailed discussion with the patient and his . Would consider admission given the potential risk for sepsis or recurrent hypotension. However the patient strongly wants to discharge home. Since he has been stable for several hours here in the ER, lactic and white count generally reassuring, will try a trial of treatment at home. Precautions for return to the ER reviewed. Rocephin 1 g IV given here in the ER. Prescription for Omnicef 300 mg b.i.d. for 10 days provided. Will adjust antibiotics based on urine culture results. Lab Data Labs: Lab Results 07/18/24 07/18/24 Range/Units 11:28 Unknown WBC 11.24 H (4.50-11.00) K/uL RBC 4.12 L (4.30-5.90) m/uL Hgb 12.1 L (13.5-17.5) gm/dL Hct 37.5 (37.0-53.0) % MCV 91 (80-100) fL MCH 29 (26-34) pg MCHC 32 (32-36) gm/dL RDW Coeff of Miriam 14.5 (11.5-15.5) % Plt Count 121 L (140-440) K/uL Neut % (Auto) 74.3 H (42.0-72.0) % Lymph % (Auto) 10.9 L (20-44) % Harris % (Auto) 13.6 H (0.0-11.0) % Eos % (Auto) 0.0 (0.0-7.0) % Baso % (Auto) 0.3 (0.0-3.0) % Neut # (Auto) 8.40 H (1.7-7.0) K/uL Lymph # (Auto) 1.20 (0.90-2.90) K/uL Harris # (Auto) 1.50 H (0.00-0.90) K/UL Eos # (Auto) 0.00 (0.00-0.50) K/uL Baso # (Auto) 0.00 (0.00-0.30) K/uL Abs Immat Gran (auto) 0.10 (0.00-0.30) K/uL Imm/Tot Granulo (auto) 0.9 % Sodium 133 L (135-149) mmol/L Potassium 4.2 (3.6-5.1) mmol/L Chloride 101 (96-114) mmol/L Carbon Dioxide 26 (20-32) mmol/L Anion Gap 6 L (7-15) mEq/L BUN 27 (7-30) mg/dL Creatinine 1.5 (0.5-1.5) mg/dL Estimated Creat Clear 54.45 Estimated GFR 49 ml/min Glucose 296 H (60-115) mg/dL Lactate 1.3 (0.5-1.9) mmol/L Calcium 8.9 (8.4-10.6) mg/dL Troponin I < 0.01 L (0.01-0.04) ng/mL C-Reactive Protein 18.2 H (0.5-1.0) mg/dL Urine Color Yellow (Yellow) Urine Appearance Cloudy A (Clear) Urine pH 7.0 (5.0-8.5) Ur Specific [place]ley 1.015 (1.000-1.030) Urine Protein 2+ A (Negative) Urine Glucose (UA) Negative (Negative) Urine Ketones Negative (Negative) Urine Blood Trace-intact A (Negative) Urine Nitrite Negative (Negative) Urine Bilirubin Negative (Negative) Urine Urobilinogen 0.2 (0.2-1.0) Ur Leukocyte Esterase 1+ A (Negative) Urine RBC 2-5 A (0-2) Urine WBC 50-100 A (0-5) Urine WBC Clumps Few A (None) Ur Squamous Epith Cells Few (None-Few) Urine Bacteria Many A (None) SARS-CoV-2 (PCR) Negative SARS-CoV-2 (Negative) Influenza Type A (PCR) Negative PCR FLU A (Negative) Influenza Type B (PCR) Negative PCR FLU B (Negative) RSV (PCR) Negative PCR RSV (Negative) Discharge Plan Discharge Clinical Impression: Acute UTI Patient Disposition: Home, Self-Care Condition: Stable Instructions: Urinary Tract Infection in Men (DC) Additional Instructions: As we discussed, please come back to the ER right away if you have high fevers, increasing weakness, dizziness, falls, confusion, or any problems. Please take your next dose of antibiotic tomorrow morning and getting antibiotic twice a day until it is gone. The hospital will contact you if we need to change antibiotics based on the results of your urine culture. Drink plenty of fluids and stay hydrated. Even if you are getting better, please recheck with your regular doctor within the next 3-5 days. Prescriptions: New cefdinir 300 mg capsule 300 mg PO BID 10 Days Qty: 20 0RF No Action atorvastatin [Lipitor] 20 mg tablet 20 mg PO DAILY carbidopa-levodopa [Sinemet] 25-100 mg tablet 2 tab PO TID clopidogrel [Plavix] 75 mg tablet 75 mg PO DAILY duloxetine [Cymbalta] 60 mg capsule,delayed release(DR/EC) 120 mg PO DAILY glipizide 10 mg tablet 10 mg PO BID loratadine [Claritin] 10 mg tablet 10 mg PO DAILY melatonin 3 mg capsule 9 mg PO QHS metformin 500 mg tablet 1,000 mg PO BID pantoprazole 20 mg tablet,delayed release (DR/EC) 20 mg PO DAILY pregabalin [Lyrica] 200 mg capsule 200 mg PO BID tadalafil [Cialis] 20 mg tablet 20 mg PO DAILY PRN Rx Instructions: administer approximately 30min before sexual activity; do not use more than 1 dose per 24hrs trazodone 100 mg tablet 200 mg PO HS albuterol sulfate 90 mcg/actuation HFA aerosol inhaler 1 - 2 puff INHALATION Q4H PRN (Reason: wheezing) methylphenidate HCl 10 mg tablet 10 - 20 mg PO BID Rx Instructions: 10 MG IN AM 5 MG IN AFTERNOON pioglitazone 30 mg tablet 30 mg PO DAILY cefpodoxime 200 mg tablet 200 mg PO Q12H 12 Days Qty: 24 0RF Rx Instructions: must administer with a meal/food Follow Up/Referrals: Teddy Greco MD [Primary Care Provider] - Stand Alone Forms: [employer] Info Instructions
[2024-07-18 11:32] LABS: PCR FLU A Negative PCR FLU A (Negative); PCR FLU B Negative PCR FLU B (Negative); PCR RSV Negative PCR RSV (Negative); SARS PCR* Negative SARS-CoV-2 (Negative)
[2024-07-18] MEDS: 0.9 % SODIUM CHLORIDE 1000 ml 1,000 ML IV (11:45)
[2024-07-18 11:46] LABS: Lactate* 1.3 mmol/L (0.5-1.9)
[2024-07-18 11:49] LABS: Basophils Percent Auto 0.3 % (0.0-3.0); Hematocrit 37.5 % (37.0-53.0); Hemoglobin* 12.1 gm/dL (13.5-17.5); Immature Granulocytes Pct Auto 0.9 %; Lymphocytes Percent Auto 10.9 % (20-44); Mean Corpuscular HGB Conc 32 gm/dL (32-36); Mean Corpuscular Hemoglobin 29 pg (26-34); Mean Corpuscular Volume 91 fL (80-100); Monocytes Percent Auto 13.6 % (0.0-11.0); Neutrophils Percent Auto 74.3 % (42.0-72.0); Platelet Count* 121 K/uL (140-440); RDW Coefficient of Variation % 14.5 % (11.5-15.5); Red Blood Count 4.12 m/uL (4.30-5.90); White Blood Count* 11.24 K/uL (4.50-11.00)
[2024-07-18 11:59] LABS: Chloride* 101 mmol/L (96-114); Potassium* 4.2 mmol/L (3.6-5.1); Sodium* 133 mmol/L (135-149)
[2024-07-18 12:02] LABS: Anion Gap 6 mEq/L (7-15); Blood Urea Nitrogen* 27 mg/dL (7-30); Carbon Dioxide* 26 mmol/L (20-32); Creatinine* 1.5 mg/dL (0.5-1.5); Est. Creatinine Clearance* 54.45; Estimated Glomerular Filt Rate 49 ml/min
[2024-07-18 12:03] LABS: Calcium* 8.9 mg/dL (8.4-10.6); Glucose* 296 mg/dL (60-115)
[2024-07-18 12:08] LABS: Slide Review Reflex No
[2024-07-18 12:19] LABS: C Reactive Protein* 18.2 mg/dL (0.5-1.0)
[2024-07-18 12:20] LABS: Troponin I* < 0.01 ng/mL (0.01-0.04)
[2024-07-18 12:25] LABS: Appearance Urine Cloudy (Clear); Bilirubin Urine Negative (Negative); Blood Urine Trace-intact (Negative); Color Urine Yellow (Yellow); Glucose Urine Negative (Negative); Ketones Urine Negative (Negative); Leukocyte Esterase Urine 1+ (Negative); Nitrite Urine Negative (Negative); Protein Urine 2+ (Negative); Specific Gravity Urine 1.015 (1.000-1.030); Urobilinogen Urine 0.2 (0.2-1.0)
[2024-07-18 12:38] LABS: Bacteria Urine Many; Squamous Epithelial Cell Urine Few (None-Few); WBC Clumps Urine Few; WBC Urine 50-100 (0-5)
[2024-07-18] MEDS: cefTRIAXone 1 GM in 0.9 % SODIUM CHLORIDE Mini-bag 100 ML IVPB (13:11)
[2024-07-18] MEDS: ACETAMINOPHEN 500 MG TABLET 1000 MG PO (13:22)
--- NOTE | 2024-07-20 13:44 | ED_ITS ---
HPI - General Adult General Date Seen: 07/18/24 Chief complaint: Weakness Stated complaint: weakness, fall Time Seen by Provider: 07/18/24 10:52 History of Present Illness HPI narrative: addendum. Cx growing enterococcus R to most cephalosporins. S to fluoroquinolones. Called patient. isabel durant. will change to cipro 500mg PO BID x 10 days. [facility] Related Data Home Medications ?Medication ?Instructions ?Recorded ?Confirmed atorvastatin 20 mg tablet (Lipitor) 20 mg PO DAILY 10/22/22 07/01/24 carbidopa 25 mg-levodopa 100 mg 2 tab PO TID 10/22/22 07/01/24 tablet (Sinemet) clopidogrel 75 mg tablet (Plavix) 75 mg PO DAILY 10/22/22 07/01/24 duloxetine 60 mg capsule,delayed 120 mg PO DAILY 10/22/22 07/01/24 release (Cymbalta) glipizide 10 mg tablet 10 mg PO BID 10/22/22 07/01/24 loratadine 10 mg tablet (Claritin) 10 mg PO DAILY 10/22/22 07/01/24 melatonin 3 mg capsule 9 mg PO QHS 10/22/22 07/01/24 metformin 500 mg tablet 1,000 mg PO BID 10/22/22 07/01/24 pantoprazole 20 mg tablet,delayed 20 mg PO DAILY 10/22/22 07/01/24 release pregabalin 200 mg capsule (Lyrica) 200 mg PO BID 10/22/22 07/01/24 tadalafil 20 mg tablet (Cialis) 20 mg PO DAILY PRN 10/22/22 07/01/24 trazodone 100 mg tablet 200 mg PO HS 10/22/22 07/01/24 albuterol sulfate 90 mcg/actuation 1 - 2 puff inhalation Q4H PRN 07/01/24 07/01/24 aerosol inhaler wheezing methylphenidate HCl 10 mg tablet 10 - 20 mg PO BID 07/01/24 07/01/24 pioglitazone 30 mg tablet 30 mg PO DAILY 07/01/24 07/01/24 Previous Rx's ?Medication ?Instructions ?Recorded cefpodoxime 200 mg tablet 200 mg PO Q12H 12 days #24 tabs 07/02/24 cefdinir 300 mg capsule 300 mg PO BID 10 days #20 caps 07/18/24 ciprofloxacin HCl 500 mg tablet 500 mg PO BID #20 tabs 07/20/24 (Cipro) Allergies Allergy/AdvReac Type Severity Reaction Status Date / Time Seasonal allergies Allergy Unknown Uncoded 06/30/24 20:51 PFSH [facility] Medical History (Updated 07/18/24 @ 14:04 by Renard Benavides MD) Liver lesion ?K76.9 - Liver disease, unspecified (ICD-10) Prostate cancer ?C61 - Malignant neoplasm of prostate (ICD-10) Vertebral basilar insufficiency ?G45.0 - Vertebro-basilar artery syndrome (ICD-10) Neurogenic bladder ?N31.9 - Neuromuscular dysfunction of bladder, unspecified (ICD-10) Chronic constipation ?K59.09 - Other constipation (ICD-10) Malignant neoplasm of urinary bladder ?C67.9 - Malignant neoplasm of bladder, unspecified (ICD-10) Severe episode of recurrent major depressive disorder, without psychotic features ?F33.2 - Major depressive disorder, recurrent severe without psychotic features (ICD-10) Stage 3 chronic kidney disease ?N18.30 - Chronic kidney disease, stage 3 unspecified (ICD-10) Subungual hematoma of great toe of left foot ?S90.212A - Contusion of left great toe with damage to nail, initial encounter (ICD-10) Parkinson disease ?G20 - Parkinson's disease (ICD-10) Adenomatous colon polyp ?D12.6 - Benign neoplasm of colon, unspecified (ICD-10) Moderate episode of recurrent major depressive disorder ?F33.1 - Major depressive disorder, recurrent, moderate (ICD-10) Periodic limb movement disorder ?G47.61 - Periodic limb movement disorder (ICD-10) GERD without esophagitis ?K21.9 - Gastro-esophageal reflux disease without esophagitis (ICD-10) Type II diabetes mellitus ?E11.9 - Type 2 diabetes mellitus without complications (ICD-10) Surgical History (Updated 07/08/24 @ 00:01 by Suzi Perez) Hx of rotator cuff surgery ?Z98.890 - Other specified postprocedural states (ICD-10) Hx of total cystectomy ?Z90.6 - Acquired absence of other parts of urinary tract (ICD-10) Hx of appendectomy ?Z90.49 - Acquired absence of other specified parts of digestive tract (ICD- 10) Family History (Updated 06/30/24 @ 21:25 by Lukasz Chaves MD) Father Heart disease Daughter Breast cancer Social History (Updated 06/30/24 @ 21:25 by Lukasz Chaves MD) Narrative: He lives with his . [facility] [employer]. Code status is full. He does not smoke. He rarely drinks alcohol. What is your current living situation?: I presently have a place to live Problems where you live: no known problems Problems where you live details: N/A In the past 12 months, utilities in danger of being shut off: no In past 12 months, lack of transportation kept you from medical appts, meetings, work, or getting things needed for daily living: no In the past 12 mos, have been you worried that your food would run out before you had money to buy more?: never true In the past 12 mos, the food you bought just didn't last and you didn't have money to buy more?: never true Highest level of school completed/degree received: Bachelor's degree Smoking Status: Never smoker Second hand tobacco smoke exposure: No How often do you have a drink containing alcohol: never How often do you have six or more drinks on one occasion: Never AUDIT-C Alcohol total score: 0 Non-prescribed substance use: denies use Caffeine: Yes (1 coffee daily) How often does anyone, including family, friends and others, physically hurt you : never How often does anyone, including family, friends and others, insult or talk down to you: never How often does anyone, including family, friends and others, threaten you with harm: never How often does anyone, including family, friends and others, scream or curse at you: never Do you think of yourself as: straight/heterosexual Gender Identity: male service: Yes Course Vital Signs Vital signs: Initial Vital Signs Temperature 97.7 F 07/18/24 10:09 Temperature Source Temporal Artery Scan 07/18/24 10:09 Pulse Rate 77 07/18/24 10:09 Pulse Rhythm Regular 07/18/24 10:09 Respiratory Rate 18 07/18/24 10:09 Blood Pressure 88/53 L 07/18/24 10:09 Blood Pressure Mean 64 L 07/18/24 10:09 Blood Pressure Position Sitting 07/18/24 10:09 Pulse Oximetry 96 07/18/24 10:09 Oxygen Delivery Method Room Air 07/18/24 10:09 Vital Signs Temperature 97.7 F 07/18/24 10:09 Pulse Rate 77 07/18/24 10:09 Respiratory Rate 18 07/18/24 10:09 Blood Pressure 88/53 L 07/18/24 10:09 Pulse Oximetry 96 07/18/24 10:09 Oxygen Delivery Method Room Air 07/18/24 10:09 Temperature 98.5 F 07/18/24 13:07 Pulse Rate 84 07/18/24 13:47 Respiratory Rate 18 07/18/24 10:09 Blood Pressure 140/71 H 07/18/24 13:47 Pulse Oximetry 97 07/18/24 13:47 Oxygen Delivery Method Room Air 07/18/24 10:09 Medications Administered Medications: Discontinued Medications Generic Name Dose Route Start Last Admin Trade Name Freq PRN Reason Stop Dose Admin Acetaminophen 1,000 mg 07/18/24 13:05 07/18/24 13:22 Acetaminophen 500 Mg Tablet PO 07/18/24 13:06 1,000 mg ONCE ONE Administration Sodium Chloride 1,000 mls @ 1,000 mls/hr 07/18/24 11:15 07/18/24 11:45 0.9 % Sodium Chloride 1000 Ml IV 07/18/24 12:14 1,000 mls/hr .Q1H TYSHAWN Administration Ceftriaxone Sodium 1 gm/ 100 mls @ 200 mls/hr 07/18/24 12:58 07/18/24 13:11 Sodium Chloride IVPB 07/18/24 12:59 200 mls/hr ONCE ONE Administration Medical Decision Making Lab Data Labs: Lab Results 07/18/24 07/18/24 Range/Units 11:28 Unknown WBC 11.24 H (4.50-11.00) K/uL RBC 4.12 L (4.30-5.90) m/uL Hgb 12.1 L (13.5-17.5) gm/dL Hct 37.5 (37.0-53.0) % MCV 91 (80-100) fL MCH 29 (26-34) pg MCHC 32 (32-36) gm/dL RDW Coeff of Miriam 14.5 (11.5-15.5) % Plt Count 121 L (140-440) K/uL Neut % (Auto) 74.3 H (42.0-72.0) % Lymph % (Auto) 10.9 L (20-44) % Sullivan % (Auto) 13.6 H (0.0-11.0) % Eos % (Auto) 0.0 (0.0-7.0) % Baso % (Auto) 0.3 (0.0-3.0) % Neut # (Auto) 8.40 H (1.7-7.0) K/uL Lymph # (Auto) 1.20 (0.90-2.90) K/uL Sullivan # (Auto) 1.50 H (0.00-0.90) K/UL Eos # (Auto) 0.00 (0.00-0.50) K/uL Baso # (Auto) 0.00 (0.00-0.30) K/uL Abs Immat Gran (auto) 0.10 (0.00-0.30) K/uL Imm/Tot Granulo (auto) 0.9 % Sodium 133 L (135-149) mmol/L Potassium 4.2 (3.6-5.1) mmol/L Chloride 101 (96-114) mmol/L Carbon Dioxide 26 (20-32) mmol/L Anion Gap 6 L (7-15) mEq/L BUN 27 (7-30) mg/dL Creatinine 1.5 (0.5-1.5) mg/dL Estimated Creat Clear 54.45 Estimated GFR 49 ml/min Glucose 296 H (60-115) mg/dL Lactate 1.3 (0.5-1.9) mmol/L Calcium 8.9 (8.4-10.6) mg/dL Troponin I < 0.01 L (0.01-0.04) ng/mL C-Reactive Protein 18.2 H (0.5-1.0) mg/dL Urine Color Yellow (Yellow) Urine Appearance Cloudy A (Clear) Urine pH 7.0 (5.0-8.5) Ur Specific [place] 1.015 (1.000-1.030) Urine Protein 2+ A (Negative) Urine Glucose (UA) Negative (Negative) Urine Ketones Negative (Negative) Urine Blood Trace-intact A (Negative) Urine Nitrite Negative (Negative) Urine Bilirubin Negative (Negative) Urine Urobilinogen 0.2 (0.2-1.0) Ur Leukocyte Esterase 1+ A (Negative) Urine RBC 2-5 A (0-2) Urine WBC 50-100 A (0-5) Urine WBC Clumps Few A (None) Ur Squamous Epith Cells Few (None-Few) Urine Bacteria Many A (None) SARS-CoV-2 (PCR) Negative SARS-CoV-2 (Negative) Influenza Type A (PCR) Negative PCR FLU A (Negative) Influenza Type B (PCR) Negative PCR FLU B (Negative) RSV (PCR) Negative PCR RSV (Negative) Discharge Plan Discharge Clinical Impression: Acute UTI Patient Disposition: Home, Self-Care Condition: Stable Instructions: Urinary Tract Infection in Men (DC) Additional Instructions: As we discussed, please come back to the ER right away if you have high fevers, increasing weakness, dizziness, falls, confusion, or any problems. Please take your next dose of antibiotic tomorrow morning and getting antibiotic twice a day until it is gone. The hospital will contact you if we need to change antibiotics based on the results of your urine culture. Drink plenty of fluids and stay hydrated. Even if you are getting better, please recheck with your regular doctor within the next 3-5 days. Prescriptions: New cefdinir 300 mg capsule 300 mg PO BID 10 Days Qty: 20 0RF ciprofloxacin HCl [Cipro] 500 mg tablet 500 mg PO BID Qty: 20 0RF No Action atorvastatin [Lipitor] 20 mg tablet 20 mg PO DAILY carbidopa-levodopa [Sinemet] 25-100 mg tablet 2 tab PO TID clopidogrel [Plavix] 75 mg tablet 75 mg PO DAILY duloxetine [Cymbalta] 60 mg capsule,delayed release(DR/EC) 120 mg PO DAILY glipizide 10 mg tablet 10 mg PO BID loratadine [Claritin] 10 mg tablet 10 mg PO DAILY melatonin 3 mg capsule 9 mg PO QHS metformin 500 mg tablet 1,000 mg PO BID pantoprazole 20 mg tablet,delayed release (DR/EC) 20 mg PO DAILY pregabalin [Lyrica] 200 mg capsule 200 mg PO BID tadalafil [Cialis] 20 mg tablet 20 mg PO DAILY PRN Rx Instructions: administer approximately 30min before sexual activity; do not use more than 1 dose per 24hrs trazodone 100 mg tablet 200 mg PO HS albuterol sulfate 90 mcg/actuation HFA aerosol inhaler 1 - 2 puff INHALATION Q4H PRN (Reason: wheezing) methylphenidate HCl 10 mg tablet 10 - 20 mg PO BID Rx Instructions: 10 MG IN AM 5 MG IN AFTERNOON pioglitazone 30 mg tablet 30 mg PO DAILY cefpodoxime 200 mg tablet 200 mg PO Q12H 12 Days Qty: 24 0RF Rx Instructions: must administer with a meal/food Follow Up/Referrals: Teddy Greco MD [Primary Care Provider] - Stand Alone [facility] Info Instructions
== END 2024-07-18 14:11 | disposition home or self-care (01) ==
PROVIDERS: Emergency Provider Emergency Medicine; PCP Family Medicine
DX: N39.0 Urinary tract infection, site not specified (principal)
CPT/HCPCS: 36415; 80048; 81001; 83605; 84484; 85025; 86140; 87040; 87086; 87186; 87631; 96365; 99281; 99283; 99284; A9270; J0696; J7030

== ENCOUNTER 2024-10-29 12:34 | Outpatient (CLI) | payer MEDICARE, SELFPAY ==
--- NOTE | 2024-10-29 13:54 | W.ANESCHARGE ---
Anesthesia Charges Start Date/Time Anesthesia Start Date: 10/29/24 Anesthesia Start Time: 13:49 Stop Date/Time Anesthesia Stop Date: 10/29/24 Anesthesia Stop Time: 14:21 Summary Extremes of Age - Over 70 or under 1: MDA
--- NOTE | 2024-10-29 14:23 | P.ANES_ITS ---
Anesthesia Charges Start Date/Time Anesthesia Start Date: 10/29/24 Anesthesia Start Time: 13:49 Stop Date/Time Anesthesia Stop Date: 10/29/24 Anesthesia Stop Time: 14:21 Summary Extremes of Age - Over 70 or under 1: YACHT [employer]TAIN
== END 2024-10-29 12:35 | disposition home or self-care (01) ==
LOC: OP CLINIC 12:35
PROVIDERS: PCP Family Medicine; Visit Provider Internal Medicine Gastroenterology
DX: Z12.11 Encounter for screening for malignant neoplasm of colon (principal); Z86.0101 Personal history of adenomatous and serrated colon polyps
CPT/HCPCS: 00811; 00812; 45378; 99100; J2704